=== PATIENT | male | born 1985 | race Caucasian/White ===

== ENCOUNTER 2020-08-02 09:40 | Outpatient (REF) | payer MEDICARE, MEDICAID, SELFPAY ==
[2020-08-02 11:11] LABS: MANUAL DIFF FLAG NO
[2020-08-02 11:30] LABS: Basophils Percent Auto 0.2 % (0-2); Eosinophils Absolute Auto 0.1 X10*3/uL (0.0-0.4); Eosinophils Percent Auto 1.8 % (0-4); Hematocrit 45.2 % (42-52); Hemoglobin 14.4 g/dl (14.0-18.0); Imm Gran Abs Auto 0.02 X10*3/uL (0.00-0.03); Imm Gran Pct Auto 0.4 % (0.0-0.4); Lymphocytes Absolute Auto 1.1 X10*3/uL (1.2-4.9); Lymphocytes Percent Auto 25.2 % (20-40); Mean Corpuscular HGB Conc 31.9 g/dl (31.0-36.0); Mean Corpuscular Volume 84.8 fL (80-98); Mean Platelet Volume 10.9 fL (9.4-12.4); Monocytes Absolute Auto 0.4 X10*3/uL (0.1-1.2); Monocytes Percent Auto 8.3 % (2-11); Neutrophils Absolute Auto 2.9 X10*3/uL (2.0-8.3); Neutrophils Percent Auto 64.1 % (45-73); Platelet Count 184 X10*3/uL (160-400); Red Blood Count 5.33 X10*6/uL (4.60-5.80); Red Cell Distribution Width 12.3 % (11.0-16.0); White Blood Count 4.5 X10*3/uL (4.8-10.8)
[2020-08-02 12:04] LABS: Vitamin D 25-OH Total 32.1 ng/mL (>30)
[2020-08-02 12:15] LABS: Alanine Aminotransferase 20 U/L (0-40); Albumin Level 4.5 g/dL (3.5-5.0); Alkaline Phosphatase 56 U/L (39-117); Anion Gap 12 (12-20); Aspartate Amino Transferase 19 U/L (5-37); Bilirubin Total 0.4 mg/dL (0.0-1.0); Blood Urea Nitrogen 14 mg/dL (9-16); Calcium 9.2 mg/dL (8.4-10.2); Carbon Dioxide 27 mmol/L (22-29); Chloride 105 mmol/L (96-108); Cholesterol 193 mg/dL; Estimated Glomerular Filt Rate > 60; Glucose Fasting 87 mg/dL (60-99); HDL Cholesterol 44 mg/dL; LDL Cholesterol Calculated 133 mg/dl; Potassium 4.6 mmol/l (3.3-5.1); Sodium 139 mmol/L (135-145); Total Protein 7.7 g/dL (6.5-8.0); Triglycerides 81 mg/dL
[2020-08-02 12:23] LABS: Carbamazepine Tegretol 9.3 mcg/mL (5.0-12.0)
== END 2020-08-02 09:41 | disposition home or self-care (01) ==
LOC: HO.HMGCLDS 09:40
PROVIDERS: PCP Internal Medicine; Visit Provider Internal Medicine
DX: E66.9 Obesity, unspecified (principal); E55.9 Vitamin D deficiency, unspecified; E78.00 Pure hypercholesterolemia, unspecified; G40.909 Epilepsy, unspecified, not intractable, without status epilepticus; F84.0 Autistic disorder
CPT/HCPCS: 36415; 80053; 80061; 80156; 82306; 85025

== ENCOUNTER 2020-08-25 08:30 | Outpatient (REF) | payer MEDICARE, MEDICAID, SELFPAY ==
[2020-08-25 09:00] LABS: MANUAL DIFF FLAG NO
[2020-08-25 09:04] LABS: Basophils Percent Auto 0.4 % (0-2); Eosinophils Absolute Auto 0.1 X10*3/uL (0.0-0.4); Hematocrit 43.4 % (42-52); Imm Gran Abs Auto 0.02 X10*3/uL (0.00-0.03); Imm Gran Pct Auto 0.4 % (0.0-0.4); Lymphocytes Absolute Auto 1.3 X10*3/uL (1.2-4.9); Lymphocytes Percent Auto 25.6 % (20-40); Mean Corpuscular HGB Conc 32.3 g/dl (31.0-36.0); Mean Corpuscular Hemoglobin 27.3 pg (27.0-33.0); Mean Corpuscular Volume 84.8 fL (80-98); Mean Platelet Volume 10.5 fL (9.4-12.4); Monocytes Absolute Auto 0.4 X10*3/uL (0.1-1.2); Monocytes Percent Auto 8.1 % (2-11); Neutrophils Absolute Auto 3.2 X10*3/uL (2.0-8.3); Neutrophils Percent Auto 63.5 % (45-73); Platelet Count 166 X10*3/uL (160-400); Red Blood Count 5.12 X10*6/uL (4.60-5.80); Red Cell Distribution Width 12.3 % (11.0-16.0)
[2020-08-25 09:31] LABS: Alanine Aminotransferase 20 U/L (0-40); Albumin Level 4.3 g/dL (3.5-5.0); Alkaline Phosphatase 52 U/L (39-117); Anion Gap 11 (12-20); Aspartate Amino Transferase 20 U/L (5-37); Bilirubin Total 0.2 mg/dL (0.0-1.0); Blood Urea Nitrogen 10 mg/dL (9-16); Calcium 8.9 mg/dL (8.4-10.2); Carbon Dioxide 27 mmol/L (22-29); Chloride 105 mmol/L (96-108); Cholesterol 184 mg/dL; Estimated Glomerular Filt Rate > 60; Glucose Fasting 98 mg/dL (60-99); HDL Cholesterol 42 mg/dL; LDL Cholesterol Calculated 119 mg/dl; Potassium 4.9 mmol/l (3.3-5.1); Sodium 138 mmol/L (135-145); Total Protein 7.3 g/dL (6.5-8.0); Triglycerides 115 mg/dL
[2020-08-25 09:54] LABS: Vitamin D 25-OH Total 28.8 ng/mL (>30)
[2020-08-25 10:22] LABS: Carbamazepine Tegretol 10.4 mcg/mL (5.0-12.0)
[2020-09-01 15:07] LABS: Gabapentin 7.5 mcg/mL
[2020-09-02 10:52] LABS: Levetiracetam Keppra 36.1 mcg/mL (12.0-46.0)
== END 2020-08-25 08:31 | disposition home or self-care (01) ==
LOC: HO.LAB 08:30
PROVIDERS: PCP Internal Medicine; Visit Provider Internal Medicine
DX: G40.909 Epilepsy, unspecified, not intractable, without status epilepticus (principal); E78.5 Hyperlipidemia, unspecified; F84.0 Autistic disorder; E55.9 Vitamin D deficiency, unspecified
CPT/HCPCS: 36415; 80053; 80061; 80156; 80171; 80177; 82306; 85025

== ENCOUNTER 2021-01-22 07:47 | Outpatient (REF) | payer MEDICARE, MEDICAID, SELFPAY ==
[2021-01-22 08:18] LABS: MANUAL DIFF FLAG NO
[2021-01-22 08:24] LABS: Basophils Percent Auto 0.3 % (0-2); Eosinophils Absolute Auto 0.1 X10*3/uL (0.0-0.4); Eosinophils Percent Auto 1.6 % (0-4); Hematocrit 42.8 % (42-52); Hemoglobin 13.9 g/dl (14.0-18.0); Imm Gran Abs Auto 0.02 X10*3/uL (0.00-0.03); Imm Gran Pct Auto 0.5 % (0.0-0.4); Lymphocytes Percent Auto 28.2 % (20-40); Mean Corpuscular HGB Conc 32.5 g/dl (31.0-36.0); Mean Corpuscular Hemoglobin 27.4 pg (27.0-33.0); Mean Corpuscular Volume 84.3 fL (80-98); Mean Platelet Volume 10.5 fL (9.4-12.4); Monocytes Absolute Auto 0.3 X10*3/uL (0.1-1.2); Monocytes Percent Auto 8.7 % (2-11); Neutrophils Absolute Auto 2.2 X10*3/uL (2.0-8.3); Neutrophils Percent Auto 60.7 % (45-73); Platelet Count 167 X10*3/uL (160-400); Red Blood Count 5.08 X10*6/uL (4.60-5.80); White Blood Count 3.7 X10*3/uL (4.8-10.8)
[2021-01-22 08:45] LABS: Alanine Aminotransferase 8 U/L (0-40); Albumin Level 4.3 g/dL (3.5-5.0); Alkaline Phosphatase 58 U/L (39-117); Anion Gap 12 (12-20); Aspartate Amino Transferase 17 U/L (5-37); Bilirubin Total 0.5 mg/dL (0.0-1.0); Blood Urea Nitrogen 11 mg/dL (9-16); Calcium 9.2 mg/dL (8.4-10.2); Carbon Dioxide 25 mmol/L (22-29); Chloride 106 mmol/L (96-108); Cholesterol 177 mg/dL; Estimated Glomerular Filt Rate > 60; Glucose Fasting 87 mg/dL (60-99); HDL Cholesterol 38 mg/dL; LDL Cholesterol Calculated 114 mg/dl; Potassium 4.6 mmol/L (3.3-5.1); Sodium 138 mmol/L (135-145); Total Protein 7.1 g/dL (6.5-8.0); Triglycerides 126 mg/dL
[2021-01-22 08:54] LABS: Estimated Average Glucose 103 mg/dL; Hemoglobin A1c % 5.2 %
[2021-01-22 09:07] LABS: Vitamin D 25-OH Total 29.7 ng/mL (>30)
[2021-01-22 10:55] LABS: Carbamazepine Tegretol 9.6 mcg/mL (5.0-12.0)
[2021-01-23 07:22] LABS: Prolactin 22.4 ng/mL (2.0-18.0)
[2021-01-26 09:57] LABS: Levetiracetam Keppra 13.5 mcg/mL (12.0-46.0)
== END 2021-01-22 07:48 | disposition home or self-care (01) ==
LOC: HO.LAB 07:47
PROVIDERS: Absent Provider Psychiatry & Neurology Child & Adolescent Psychiatry; PCP Internal Medicine; Visit Provider Internal Medicine
DX: F84.0 Autistic disorder (principal); G40.909 Epilepsy, unspecified, not intractable, without status epilepticus; E78.00 Pure hypercholesterolemia, unspecified; E55.9 Vitamin D deficiency, unspecified; Z79.899 Other long term (current) drug therapy
CPT/HCPCS: 36415; 80053; 80061; 80156; 80177; 82306; 83036; 84146; 85025

== ENCOUNTER → 2021-02-14 07:01 | Outpatient (REF) | payer MEDICARE, MEDICAID, SELFPAY ==
--- NOTE | 2021-02-14 07:13 | ECG_ITS ---
Test Reason : F84.0 Blood Pressure : / mmHG Vent. Rate : 080 BPM Atrial Rate : 080 BPM P-R Int : 168 ms QRS Dur : 102 ms QT Int : 382 ms P-R-T Axes : 032 020 054 degrees QTc Int : 440 ms Normal sinus rhythm Normal ECG No previous ECGs available Referred By: [place] Electronically Signed By:Ronn Coulter
== END ==
LOC: HO.CARD 07:01
PROVIDERS: PCP Internal Medicine; Visit Provider Psychiatry & Neurology Child & Adolescent Psychiatry
DX: Z79.899 Other long term (current) drug therapy (principal)
CPT/HCPCS: 93005

== ENCOUNTER → 2022-12-12 08:03 | Outpatient (REF) | payer MEDICARE, MEDICAID, SELFPAY ==
--- NOTE | 2022-12-12 08:11 | ECG_ITS ---
Test Reason : rhythm pre-op Blood Pressure : / mmHG Vent. Rate : 095 BPM Atrial Rate : 095 BPM P-R Int : 162 ms QRS Dur : 094 ms QT Int : 370 ms P-R-T Axes : 045 058 054 degrees QTc Int : 464 ms Normal sinus rhythm Normal ECG When compared with ECG of 14-FEB-2021 07:18, No significant change was found Referred By: Laure Ayala Electronically Signed By:JUAN CROWE
[2022-12-12 08:20] LABS: MANUAL DIFF FLAG NO
[2022-12-12 08:39] LABS: Basophils Percent Auto 0.2 % (0-2); Eosinophils Absolute Auto 0.1 X10*3/uL (0.0-0.4); Hematocrit 43.4 % (42.0-52.0); Hemoglobin 14.4 g/dl (14.0-18.0); Imm Gran Abs Auto 0.03 X10*3/uL (0.00-0.03); Imm Gran Pct Auto 0.7 % (0.0-0.4); Lymphocytes Absolute Auto 1.1 X10*3/uL (1.2-4.9); Lymphocytes Percent Auto 23.5 % (20-40); Mean Corpuscular HGB Conc 33.2 g/dl (31.0-36.0); Mean Corpuscular Hemoglobin 26.9 pg (27.0-33.0); Mean Corpuscular Volume 81.1 fL (80.0-98.0); Mean Platelet Volume 9.9 fL (9.4-12.4); Monocytes Absolute Auto 0.5 X10*3/uL (0.1-1.2); Neutrophils Absolute Auto 2.9 x10*3/uL (2.0-8.3); Neutrophils Percent Auto 63.6 % (45-73); Platelet Count 192 X10*3/uL (160-400); Red Blood Count 5.35 X10*6/uL (4.60-5.80); Red Cell Distribution Width 12.3 % (11.0-16.0); White Blood Count 4.6 X10*3/uL (4.8-10.8)
[2022-12-12 08:49] LABS: Prothrombin Time 11.9 SEC (10.0-13.1)
[2022-12-12 13:03] LABS: TSH reflex Free T4 2.04 uIU/mL (0.32-4.0)
[2022-12-12 13:07] LABS: Anion Gap 10 (12-20)
[2022-12-12 13:12] LABS: Alanine Aminotransferase 15 U/L (0-40); Albumin Level 4.2 g/dL (3.5-5.0); Alkaline Phosphatase 63 U/L (39-117); Aspartate Amino Transferase 18 U/L (5-37); Bilirubin Total 0.4 mg/dL (0.0-1.0); Blood Urea Nitrogen 9 mg/dL (9-16); Calcium 9.2 mg/dL (8.4-10.2); Carbon Dioxide 25 mmol/L (22-29); Chloride 104 mmol/L (96-108); Estimated Glomerular Filt Rate > 60; Glucose Random 109 mg/dL (60-115); Potassium 4.4 mmol/L (3.3-5.1); Sodium 135 mmol/L (135-145); Total Protein 7.1 g/dL (6.5-8.0)
== END ==
LOC: HO.CARD 08:03
PROVIDERS: PCP Internal Medicine; Visit Provider Nurse Practitioner Family
DX: Z01.818 Encounter for other preprocedural examination (principal)
CPT/HCPCS: 36415; 80053; 84443; 85025; 85610; 93005

== ENCOUNTER 2023-04-10 09:23 | Outpatient (AMB) | payer MEDICARE, MEDICAID, SELFPAY ==
[2023-04-10 09:26] VITALS: BP 118/78; PULSE 91; O2SAT 98; BMI 30.9
--- NOTE | 2023-04-10 09:26 | MHC.PC.OV ---
Vital Signs 04/10/23 09:26 Height 6 ft 4 in Weight 254 lb BMI 30.9 BP 118/78 Blood Pressure Location Lt brachial Position Sitting Pulse 91 Pulse Source Pulse Oximeter Pulse Oximetry (%) 98 Oxygen Delivery Method Room Air Intake Visit Reasons: 6m F/U autism, epilepsy, hyperlipidemia [employer] Load[employer] Operator Required: No Accompanied by: Self / Same As Patient Allergies No Known Allergies [No Known Allergies*] Allergy (Verified 04/10/23 09:43) Medication List - Last Reconciled 04/10/23 by Low Isaac MD acetaminophen 650 mg (2 x 325 mg) PO Q4-6H PRN 30 days ammonium lactate 12% 1 appl topical BID PRN 30 days atorvastatin 20 mg PO DAILY benztropine 1 mg PO BID carbamazepine ER 500 mg (5 x 100 mg) PO BID 30 days cholecalciferol (vitamin D3) (Vitamin D3) 50 mcg PO DAILY clonidine HCl 0.1 mg PO BID 90 days clonidine HCl 0.2 mg PO BEDTIME 90 days gabapentin 600 mg PO BID 30 days gabapentin 400 mg PO TID levetiracetam 1,000 mg PO BID lorazepam 1 mg PO BID onabotulinumtoxinA units IM Q3D risperidone 3 mg PO BID tizanidine 4 mg PO Q8H PRN 30 days trazodone 150 mg PO BEDTIME trazodone 100 mg PO BEDTIME Tobacco use date assessed: 04/10/23 Dental Screening Dental Screen Date: 04/10/23 Did you have a dental visit in the last 12 months?: Yes Did you have a dental problem in the last 6 months where you did not have access to dental care?: No Was dental information given to patient?: Patient has dentist HPI 6m F/U autism, epilepsy, hyperlipidemia HPI Details Patient comes in today for his follow up visit - is accompanied as usual by his mother, who is his HCP His mother states that patient has been doing well lately States that neurology recently added an extra 400 mg dose of Gabapentin at noon to his previous Rx regimen and he now takes Gabapentin 1000 mg in AM, 400 mg at noon and 1000 mg in the evening in addition to all of his previous Rx States that his Keppra is now back at 1500 mg BID and he has a follow up appt with neurology again next month Patient is reportedly doing well and has not had any seizures lately Is also doing better at his day program since his Rx dose adjustment Patient denies any headaches or dizziness lately Denies any chest pains, no SOB No nausea/vomiting, no abdominal pain No change in bowel habits noted His mother adds that he's had several red skin lesions on the left side of his neck for a while now and she would like for him to be seen by dermatology to see if they can help clear or remove these lesions He's had some follow up labs done at [facility] a couple of months ago and his mother would like to know if his labs came out okay [facility] Medical History Autism Cervical dystonia Epilepsy Obesity (BMI 30-39.9) Obsessive compulsive disorder Pure hypercholesterolemia Vitamin D deficiency Surgical History History of elbow surgery History of excision of mass Family History Mother Medical history unknown Social History Housing: Apartment Alcohol intake: never Patient Tobacco Use Status: Never used Tobacco e-Cigarette/Vaping Use: Never Used Second Hand Smoke Exposure: No service: No Current occupational status: disabled Cognitive needs: Yes Hearing needs: No Vision needs: No Questionnaire PHQ-9 Over the last 2 weeks, how often have you been bothered by any of the following problems? 1. Little interest or pleasure in doing things: not at all 2. Feeling down, depressed, or hopeless: not at all 3. Trouble falling or staying asleep, or sleeping too much: not at all 4. Feeling tired or having little energy: not at all 5. Poor appetite or overeating: not at all 6. Feeling bad about yourself - or that you are a failure or have let yourself or your family down: not at all 7. Trouble concentrating on things, such as reading the newspaper or watching television: not at all 8. Moving or speaking so slowly that other people could have noticed. Or the opposite - being so fidgety or restless that you have been moving around a lot more than usual: not at all 9. Thoughts that you would be better off or of hurting yourself in some way: not at all Total score: 0 Depression Screening Interpretation: Negative [id number] - PHQ-9 Billing: Yes Source: Developed by Drs. William Romero, Gi Jarrell, Praneeth Baez and colleagues, with an educational donta from [facility]. Thrive Questionnaire Date Thrive assessed: 04/10/23 I am a: Parent/Caregiver What is your living situation today?: I have a steady place to live Within the past 12 months, did the food you bought not last and you didn't have the money to get more?: Never true Within the past 12 months, did you worry whether your food would run out before you got money to buy more?: Never true Do you have trouble paying for medicines?: No Do you have trouble getting transportation to medical appointments?: No Do you have trouble paying your heating and electricity bill?: No Do you have trouble taking care of your child, family member or friend?: No Do you have trouble with day-to-day activities such as bathing, preparing meals, shopping, managing finances, etc.?: No Are you currently unemployed and looking for a job?: No Are you interested in more education?: No Please select the resources that you would like help with: None Currently or been in a relationship where the following occur: no concerns reported AUDIT C Alcohol Use Questionnaire (AUDIT-C) 1. How often do you have a drink containing alcohol?: Never 3. How often do you have six or more drinks on one occasion?: Never Total Score: 0 Score Reviewed/Action Taken: Yes DNAII-7 AMB Questionnaire DANII-7 Date DANII - 7 assessed: 04/10/23 Feeling nervous, anxious, or on edge: 0 = Not at all Not being able to stop or control worryin = Not at all Worrying too much about different things: 0 = Not at all Trouble relaxin = Not at all Being so restless that it is hard to sit still: 0 = Not at all Becoming easily annoyed or irritable: 0 = Not at all Feeling afraid as if something awful might happen: 0 = Not at all Total DANII-7 score (0-4 normal; 5-9 mild; 10-14 moderate; 15-21 severe): 0 Source: Developed by Drs. William Romero, Gi Jarrell, Praneeth Baez and colleagues, with an educational donta from [facility]. Review of Systems Const Details: Information/ROS is obtained mostly through patient's mother as patient is unable to provide info due to his mental and intellectual disabilities Denies chills, Denies fatigue, Denies fever(s) and Denies headache(s) ENT Denies dysphagia, Denies dizziness, Denies otalgia, Denies headache(s), Denies neck pain, Denies odynophagia and Denies sore throat Card Denies chest pain, Denies palpitations and Denies dyspnea Resp Denies chest congestion, Denies cough, Denies dyspnea and Denies wheezing GI Denies abdominal pain, Denies constipation, Denies dysphagia, Denies heartburn, Denies diarrhea, Denies nausea, Denies odynophagia and Denies vomiting Details: wets bed accidentally at night at times Denies hematuria, Denies dysuria and Denies urinary frequency Musc Denies back pain, Denies arthralgias and Denies neck pain Skin/Breast Details: (+) several raised skin lesions on the left side of the neck - lesions are not painful or itchy Denies rash and Denies unusual bruising Neuro Denies dizziness and Denies headache(s) Endo Denies fatigue and Denies palpitations Aller/Immun Denies wheezing Physical exam (Primary Care) Vital Signs: Last Vital Signs Pulse 91 04/10/23 09:26 BP 118/78 04/10/23 09:26 Pulse Ox 98 04/10/23 09:26 Oxygen Delivery Method Room Air 04/10/23 09:26 BMI result Body Mass Index 30.9 Tobacco/Smoking Status: Tobacco use Status Tobacco use date assessed 04/10/23 04/10/23 09:32 Patient Tobacco Use Status Never used Tobacco 04/10/23 09:32 e-Cigarette/Vaping Use Never Used 04/10/23 09:32 PHQ-9: PHQ-9 Score PHQ-9: Total score 0 04/10/23 09:32 Depression Screening Interpretation: Negative Thrive Assessment: Date of Thrive Assessment Date Thrive assessed 04/10/23 04/10/23 09:32 Currently or been in a relationship where the following occur: no concerns reported Const General: no acute distress and alert Orientation/consciousness: Other orientation findings (unable to assess orientation due to mental disability) HENMT Ears: TM's normal bilaterally and EAC's normal Throat: Yes posterior oropharynx normal and Yes tonsils normal (no TP congestion) Neck Neck: Yes no lymphadenopathy and Yes supple Thyroid: Thyroid normal Resp Auscultation: clear to auscultation bilaterally, no rales and no wheezes Cardio Rate: regular rate Rhythm: regular rhythm Heart sounds: no murmurs GI Palpation (GI): Soft to palpation and nontender Auscultation: normal bowel sounds General: Yes no CVA tenderness Back/Spine/Pelvis Back: no CVA tenderness Thoracic/Lumbar Spine: thoracic and lumbar spine normal to inspection Skin Other: (+) multiple raised, red (erythematous) lesions on the left side of the neck Neuro Other: neuro exam limited due to patient's inability to fully comply with exam General: moves all extremities and no focal motor deficits Gait exam (Neuro): Normal gait present Extrem General: Yes no clubbing, cyanosis or edema Results Reviewed Results Reviewed: Laboratory Tests 12/12/22 12/12/22 08:18 08:18 WBC 4.6 L Hgb 14.4 Hct 43.4 Plt Count 192 Sodium 135 Potassium 4.4 Creatinine 0.92 Estimated GFR > 60 Random Glucose 109 Calcium 9.2 AST 18 ALT 15 TSH 2.04 Assessment and Plan Assessment & Plan (1) Pure hypercholesterolemia: Code(s): E78.00 - Pure hypercholesterolemia, unspecified Plan: Results of his labs done at [facility] back in January 2023 reviewed and discussed with patient's mother Reinforced low cholesterol diet Continue Atorvastatin 20 mg QD Will have him recheck his labs and fasting lipids in 6 months for follow up (2) Epilepsy: Code(s): G40.909 - Epilepsy, unspecified, not intractable, without status epilepticus Qualifiers: Epilepsy type: unspecified Intractability: not intractable Status epilepticus: without status epilepticus Qualified Code(s): G40.909 - Epilepsy, unspecified, not intractable, without status epilepticus Plan: Stable Continue Levetiracetam 1500 mg BID and Carbamazepine ER 500 mg BID (100 mg caps at 5 caps BID) Follow up with neurology as scheduled - is now going to [facility] Neurology since Dr. Fierro retired (3) Cervical dystonia: Code(s): G24.3 - Spasmodic torticollis Plan: Follow up with neurology as scheduled - gets Botox injections into both sides of the neck regularly now from Dr. Giordano Was tried on Nurtec ODT, which patient's mother states did not help much Has been started on Sinemet 25-100 mg to take PRN but no more than 2 tablets in 24 hours - instructions are similar to how triptans are taken (4) Vitamin D deficiency: Code(s): E55.9 - Vitamin D deficiency, unspecified Plan: Continue Vitamin D3 2000 units QD (5) Skin lesions: Code(s): L98.9 - Disorder of the skin and subcutaneous tissue, unspecified Plan: Per patient's mother's request, will refer him to dermatology for further evaluation and management (excision if appropriate) of the multiple red and raised lesions on the left side of his neck (6) Autism: Code(s): F84.0 - Autistic disorder Plan: Continue Clonidine 0.1 mg twice a day in AM and at 4 pm and Clonidine 0.2 mg daily at bedtime Continue Hydroxyzine 50 mg Q 8 hours as needed Follow up with psychiatry as scheduled (7) Obsessive compulsive disorder: Code(s): F42.9 - Obsessive-compulsive disorder, unspecified Qualifiers: Obsessive-compulsive disorder type: unspecified Qualified Code(s): F42.9 - Obsessive-compulsive disorder, unspecified Plan: Continue Benztropine Mesylate 1 mg BID, Risperdal 3 mg 1 tablet BID at 8 am and 4 pm, Gabapentin 600 mg + 400 mg (total of 1000 mg) BID and Trazodone 150 mg + 100 mg (total of 250 mg) Q HS States that Gabapentin 400 mg QD at noon was added recently by neurology Follow up with psychiatry and neurology as scheduled (8) Obesity (BMI 30-39.9): Code(s): E66.9 - Obesity, unspecified Plan: Reinforced diet/exercise as tolerated/lose weight Plan To return in 6 months for his next annual physical examination Orders: Orders Complete Blood Count Auto Diff 6 Months G40.909 - Epilepsy, unspecified, not intractable, without status epilepticus, Z00.00 - Encounter for general adult medical examination without abnormal findings Comprehensive [place]. Panel Fast 6 Months G40.909 - Epilepsy, unspecified, not intractable, without status epilepticus, Z00.00 - Encounter for general adult medical examination without abnormal findings Lipid Panel 6 Months E78.00 - Pure hypercholesterolemia, unspecified, G40.909 - Epilepsy, unspecified, not intractable, without status epilepticus, Z00.00 - Encounter for general adult medical examination without abnormal findings TSH reflex Free T4 6 Months E66.9 - Obesity, unspecified, G40.909 - Epilepsy, unspecified, not intractable, without status epilepticus, Z00.00 - Encounter for general adult medical examination without abnormal findings UA CC w/rflx Micro + Cult 6 Months R30.0 - Dysuria, Z00.00 - Encounter for general adult medical examination without abnormal findings Vitamin D 25-OH Total 6 Months E55.9 - Vitamin D deficiency, unspecified, Z00.00 - Encounter for general adult medical examination without abnormal findings Levetiracetam Keppra 6 Months G40.909 - Epilepsy, unspecified, not intractable, without status epilepticus, Z00.00 - Encounter for general adult medical examination without abnormal findings Carbamazepine Tegretol 6 Months G40.909 - Epilepsy, unspecified, not intractable, without status epilepticus Referrals Dermatology Referral L98.9 - Disorder of the skin and subcutaneous tissue, unspecified Coding Level of Care Code Est Pt Level 4 (99947) Diagnoses Pure hypercholesterolemia E78.00 Epilepsy G40.909 Epilepsy type: unspecified Intractability: not intractable Status epilepticus: without status epilepticus Cervical dystonia G24.3 Vitamin D deficiency E55.9 Skin lesions L98.9 Autism F84.0 Obsessive compulsive disorder F42.9 Obsessive-compulsive disorder type: unspecified Obesity (BMI 30-39.9) E66.9
== END 2023-04-10 10:13 | disposition home or self-care (01) ==
PROVIDERS: PCP Internal Medicine; Visit Provider Internal Medicine
DX: E78.00 Pure hypercholesterolemia, unspecified (principal); G40.909 Epilepsy, unspecified, not intractable, without status epilepticus; E55.9 Vitamin D deficiency, unspecified; F84.0 Autistic disorder; G24.3 Spasmodic torticollis; L98.9 Disorder of the skin and subcutaneous tissue, unspecified; F42.9 Obsessive-compulsive disorder, unspecified; E66.9 Obesity, unspecified
CPT/HCPCS: 99214

== ENCOUNTER 2023-10-11 08:59 | Outpatient (AMB) | payer MEDICARE, MEDICAID, SELFPAY ==
[2023-10-11 09:00] VITALS: BP 112/68; PULSE 78; O2SAT 98; BMI 31.9
--- NOTE | 2023-10-11 09:00 | MHC.PC.OV ---
Vital Signs 10/11/23 09:00 Height 6 ft 4 in Weight 262 lb BMI 31.9 BP 112/68 Blood Pressure Location Lt brachial Position Sitting Pulse 78 Pulse Source Pulse Oximeter Pulse Oximetry (%) 98 Oxygen Delivery Method Room Air Intake Visit Reasons: pe Intake Note: Patient here for a physica exam Tow Picker Required: No Accompanied by: Mother Allergies No Known Allergies [No Known Allergies*] Allergy (Verified 10/11/23 09:25) Medication List - Last Reconciled 10/11/23 by Low Isaac MD acetaminophen 650 mg (2 x 325 mg) PO Q4-6H PRN 30 days ammonium lactate 12% 1 appl topical BID PRN 30 days atorvastatin 20 mg PO DAILY benztropine 1 mg PO BID carbamazepine ER 500 mg (5 x 100 mg) PO BID 30 days cholecalciferol (vitamin D3) (Vitamin D3) 50 mcg PO DAILY clonidine HCl 0.2 mg PO BEDTIME 90 days clonidine HCl 0.1 mg PO BID 90 days gabapentin 600 mg PO BID 30 days gabapentin 400 mg PO TID levetiracetam 1,000 mg PO BID lorazepam 1 mg PO BID onabotulinumtoxinA units IM [id number] risperidone 3 mg PO QAM risperidone 2 mg PO QPM risperidone 0.5 mg PO QPM tizanidine 4 mg PO Q8H PRN 30 days trazodone 150 mg PO BEDTIME trazodone 100 mg PO BEDTIME Tobacco use date assessed: 10/11/23 Dental Screening Dental Screen Date: 10/11/23 Did you have a dental visit in the last 12 months?: Yes Did you have a dental problem in the last 6 months where you did not have access to dental care?: No Was dental information given to patient?: Patient has dentist HPI pe HPI Details Patient comes in today for his annual physical examination - is accompanied as usual by his mother, who is his primary caregiver, guardian and HCP Information is obtained mostly from his mother as patient is not able to participate in meaningful conversations due to his psychiatric issues Patient is reportedly doing well and currently has no acute issues aside from his seizures He had seizures most recently on Sunday of last week - his seizures were mostly mild, per his mother, who states that patient still has seizure episodes about once a month He is receiving Botox injections into both sides of the neck for cervical dystonia with anterocollis from neurology every 3 months - his mother states that the Botox injections have been helping a lot Patient presently has had no fever, sore throat, headaches or dizziness He has no chest pains or SOB No nausea/vomiting, no abdominal pain No change in bowel habits noted Patient still occasionally wets his bed (accidentally); his mother states that he is otherwise able to use the bathroom on his own but needs help cleaning up after bowel movements and they would like to see if he can be prescribed some adult briefs for nighttime use He also continues to go to and participate in his day program regularly He needs his Lac Hydrin lotion Rx refilled He had his follow up labs done at [facility] last weekend - to discuss his results [facility] Medical History Cervical dystonia Obesity (BMI 30-39.9) Obsessive compulsive disorder Autism Vitamin D deficiency Pure hypercholesterolemia Epilepsy Surgical History History of elbow surgery History of excision of mass Family History Mother Medical history unknown Social History Housing: Apartment Alcohol intake: never Patient Tobacco Use Status: Never used Tobacco e-Cigarette/Vaping Use: Never Used Second Hand Smoke Exposure: No service: No Current occupational status: disabled Cognitive needs: Yes Hearing needs: No Vision needs: No Questionnaire PHQ-9 Over the last 2 weeks, how often have you been bothered by any of the following problems? 1. Little interest or pleasure in doing things: not at all 2. Feeling down, depressed, or hopeless: not at all 3. Trouble falling or staying asleep, or sleeping too much: not at all 4. Feeling tired or having little energy: not at all 5. Poor appetite or overeating: not at all 6. Feeling bad about yourself - or that you are a failure or have let yourself or your family down: not at all 7. Trouble concentrating on things, such as reading the newspaper or watching television: not at all 8. Moving or speaking so slowly that other people could have noticed. Or the opposite - being so fidgety or restless that you have been moving around a lot more than usual: not at all 9. Thoughts that you would be better off or of hurting yourself in some way: not at all Total score: 0 Depression Screening Interpretation: Negative Depression Screening Done: Yes 75520 - PHQ-9 Billing: Yes Source: Developed by Drs. William Romero, Gi Jarrell, Praneeth Baez and colleagues, with an educational donta from [employer]. Thrive Questionnaire Date Thrive assessed: 10/11/23 I am a: Parent/Caregiver What is your living situation today?: I have a steady place to live Within the past 12 months, did the food you bought not last and you didn't have the money to get more?: Never true Within the past 12 months, did you worry whether your food would run out before you got money to buy more?: Never true Do you have trouble paying for medicines?: No Do you have trouble getting transportation to medical appointments?: No Do you have trouble paying your heating and electricity bill?: No Do you have trouble taking care of your child, family member or friend?: No Do you have trouble with day-to-day activities such as bathing, preparing meals, shopping, managing finances, etc.?: No Are you currently unemployed and looking for a job?: No Are you interested in more education?: No Please select the resources that you would like help with: None Currently or been in a relationship where the following occur: no concerns reported THRIVE Score: 0 AUDIT C Alcohol Use Questionnaire (AUDIT-C) 1. How often do you have a drink containing alcohol?: Never Total Score: 0 Score Reviewed/Action Taken: Yes DANII-7 AMB Questionnaire DANII-7 Date DANII - 7 assessed: 10/11/23 Feeling nervous, anxious, or on edge: 1 = Several days Not being able to stop or control worryin = Not at all Worrying too much about different things: 0 = Not at all Trouble relaxin = Not at all Being so restless that it is hard to sit still: 0 = Not at all Becoming easily annoyed or irritable: 0 = Not at all Feeling afraid as if something awful might happen: 0 = Not at all Total DANII-7 score (0-4 normal; 5-9 mild; 10-14 moderate; 15-21 severe): 1 Source: Developed by Drs. William Romero, iG Jarrell, Praneeth Baez and colleagues, with an educational donta from [employer]. Review of Systems Const Details: Information/ROS is obtained mostly through patient's mother as patient is unable to provide info due to his mental and intellectual disabilities Denies chills, Denies fatigue, Denies fever(s) and Denies headache(s) Eyes Denies eye discharge and Denies eye pain ENT Denies dysphagia, Denies dizziness, Denies otalgia, Denies headache(s), Denies neck pain, Denies odynophagia and Denies sore throat Card Denies chest pain, Denies palpitations and Denies dyspnea Resp Denies chest congestion, Denies cough, Denies dyspnea and Denies wheezing GI Denies abdominal pain, Denies constipation, Denies dysphagia, Denies heartburn, Denies diarrhea, Denies nausea, Denies odynophagia and Denies vomiting Details: wets bed accidentally at night at times Denies hematuria, Denies dysuria, Denies urinary frequency and Reports urinary incontinence (at times, mostly at night) Musc Denies back pain, Denies arthralgias and Denies neck pain Skin/Breast Denies lesions, Denies rash and Denies unusual bruising Neuro Denies dizziness, Denies headache(s) and Reports convulsions (on and off, mostly mild (per patient's mother)) Endo Denies fatigue and Denies palpitations Aller/Immun Denies wheezing Physical exam (Primary Care) Vital Signs: Last Vital Signs Pulse 78 10/11/23 09:00 BP 112/68 10/11/23 09:00 Pulse Ox 98 10/11/23 09:00 Oxygen Delivery Method Room Air 10/11/23 09:00 BMI result Body Mass Index 31.9 Tobacco/Smoking Status: Tobacco use Status Tobacco use date assessed 10/11/23 10/11/23 09:02 Patient Tobacco Use Status Never used Tobacco 10/11/23 09:02 e-Cigarette/Vaping Use Never Used 10/11/23 09:02 PHQ-9: PHQ-9 Score PHQ-9: Total score 0 10/11/23 09:36 Depression Screening Interpretation: Negative Thrive Assessment: Date of Thrive Assessment Date Thrive assessed 10/11/23 10/11/23 09:02 Currently or been in a relationship where the following occur: no concerns reported Const General: no acute distress and alert Orientation/consciousness: Other orientation findings (unable to assess orientation due to mental disability) Limitations: behavioral limitations (is autistic) [facility] Head: Yes normocephalic and Yes atraumatic Ears: external ears normal, TM's normal bilaterally and EAC's normal General nose exam: No nasal discharge present Face and sinus: Yes normal facial exam Mouth: Normal oral and palatal mucosa present and tongue normal Teeth and gingiva: dentition normal Throat: Yes posterior oropharynx normal and Yes tonsils normal (no TP congestion) Eyes Eyelids: Yes eyelids normal Conjunctivae: conjunctivae normal Neck Neck: Yes no lymphadenopathy and Yes supple Thyroid: Thyroid normal Resp Auscultation: clear to auscultation bilaterally, no rales and no wheezes Cardio Rate: regular rate Rhythm: regular rhythm Heart sounds: no murmurs GI Palpation (GI): Soft to palpation, nontender and No hepatosplenomegaly present Auscultation: normal bowel sounds General: Yes no CVA tenderness Back/Spine/Pelvis Back: no CVA tenderness Thoracic/Lumbar Spine: thoracic and lumbar spine normal to inspection Skin Lesions: no lesions Rashes: no rashes Neuro Other: neuro exam limited due to patient's disabilities and his inability to fully comply with exam General: moves all extremities and no focal motor deficits Gait exam (Neuro): Normal gait present Extrem General: Yes no clubbing, cyanosis or edema Assessment and Plan Assessment & Plan (1) Annual physical exam: Code(s): Z00.00 - Encounter for general adult medical examination without abnormal findings Plan: Results of his labs done at [facility] last weekend reviewed and discussed with patient's mother (2) Pure hypercholesterolemia: Code(s): E78.00 - Pure hypercholesterolemia, unspecified Plan: His mother is advised that patient's cholesterol levels from his labs done last weekend are near goal but should be lower considering that he is on medications for cholesterol Reinforced low cholesterol diet Continue Atorvastatin 20 mg QD (3) Epilepsy: Code(s): G40.909 - Epilepsy, unspecified, not intractable, without status epilepticus Qualifiers: Epilepsy type: unspecified Intractability: not intractable Status epilepticus: without status epilepticus Qualified Code(s): G40.909 - Epilepsy, unspecified, not intractable, without status epilepticus Plan: Continue Levetiracetam 1000 mg BID Continue Carbamazepine ER 500 mg BID (100 mg caps - 5 caps BID) Follow up with neurology as scheduled - is now going to [facility] Neurology (used to see Dr. Fierro until he retired a couple of years ago) (4) Cervical dystonia: Code(s): G24.3 - Spasmodic torticollis Plan: Follow up with neurology as scheduled - gets Botox injections into both sides of the neck regularly every 3 months from Neurology Was tried on Nurtec ODT, which patient's mother states did not help much Has was started on Sinemet 25-100 mg to take PRN but no more than 2 tablets in 24 hours last year but these have been discontinued since (5) Vitamin D deficiency: Code(s): E55.9 - Vitamin D deficiency, unspecified Plan: Continue Vitamin D3 2000 units QD (6) Dry skin dermatitis: Code(s): L85.3 - Xerosis cutis Plan: Continue Lac Hydrin 12% cream BID PRN - Rx refilled (7) Incontinence: Code(s): R32 - Unspecified urinary incontinence Qualifiers: Incontinence type: urinary Urinary Incontinence type: unspecified incontinence Qualified Code(s): R32 - Unspecified urinary incontinence Plan: Occurring mostly at bedtime Per request, will provide with Rx for adult briefs for him to use at night (8) Autism: Code(s): F84.0 - Autistic disorder Plan: Continue Clonidine 0.1 mg twice a day in AM and at 4 pm and Clonidine 0.2 mg daily at bedtime Follow up with psychiatry as scheduled (9) Obsessive compulsive disorder: Code(s): F42.9 - Obsessive-compulsive disorder, unspecified Qualifiers: Obsessive-compulsive disorder type: unspecified Qualified Code(s): F42.9 - Obsessive-compulsive disorder, unspecified Plan: Continue Benztropine Mesylate 1 mg BID, Risperdal 3 mg at 8 am and 2.5 mg at 4 pm (is slowly being weaned down by psychiatry), Gabapentin 600 mg + 400 mg (total of 1000 mg) BID and Trazodone 150 mg + 100 mg (total of 250 mg) Q HS Follow up with psychiatry as scheduled (10) Obesity (BMI 30-39.9): Code(s): E66.9 - Obesity, unspecified Plan: Reinforced diet/exercise as tolerated/lose weight - his mother is cautioned that patient has gained about 30 pounds since this time last year Plan Follow up in 6 months Medications: New [ADULT BRIEFS (2XL)] As directed 100 ea 3RF R32 - Unspecified urinary incontinence Refilled ammonium lactate 12% 1 appl topical BID 30 days PRN 385 grams 12RF dry skin Coding Level of Care Code Est Pt Prev Care [id number]([id number]) Diagnoses Annual physical exam Z00.00 Pure hypercholesterolemia E78.00 Nonintractable epilepsy without status epilepticus, unspecified epilepsy type G40.909 Epilepsy type: unspecified Intractability: not intractable Status epilepticus: without status epilepticus Cervical dystonia G24.3 Vitamin D deficiency E55.9 Dry skin dermatitis L85.3 Urinary incontinence, unspecified type R32 Incontinence type: urinary Urinary Incontinence type: unspecified incontinence Autism F84.0 Obsessive-compulsive disorder, unspecified type F42.9 Obsessive-compulsive disorder type: unspecified Obesity (BMI 30-39.9) E66.9
== END 2023-10-11 09:52 | disposition home or self-care (01) ==
PROVIDERS: PCP Internal Medicine; Visit Provider Internal Medicine
DX: Z00.00 Encounter for general adult medical examination without abnormal findings (principal); G40.909 Epilepsy, unspecified, not intractable, without status epilepticus; Z68.31 Body mass index [BMI] 31.0-31.9, adult; E66.9 Obesity, unspecified; E78.00 Pure hypercholesterolemia, unspecified; G24.3 Spasmodic torticollis; E55.9 Vitamin D deficiency, unspecified; L85.3 Xerosis cutis; R32 Unspecified urinary incontinence; F84.0 Autistic disorder; F42.9 Obsessive-compulsive disorder, unspecified
CPT/HCPCS: 99395

== ENCOUNTER 2024-04-14 09:13 | Outpatient (AMB) | payer MEDICARE, MEDICAID, SELFPAY ==
[2024-04-14 09:16] VITALS: BP 110/68; PULSE 74; O2SAT 96; BMI 31.5
--- NOTE | 2024-04-14 09:16 | MHC.PC.OV ---
Vital Signs 04/14/24 09:16 Height 6 ft 4 in Weight 259 lb BMI 31.5 BP 110/68 Blood Pressure Location Lt brachial Position Sitting Pulse 74 Pulse Source Pulse Oximeter Pulse Oximetry (%) 96 Oxygen Delivery Method Room Air Intake Visit Reasons: autism, epilepsy Neon Tube Pumper Required: No Accompanied by: Self / Same As Patient Allergies No Known Allergies [No Known Allergies*] Allergy (Verified 04/14/24 09:46) Medication List - Last Reconciled 04/14/24 by Low Isaac MD acetaminophen 650 mg (2 x 325 mg) PO Q4-6H PRN 30 days [ADULT BRIEFS (2XL) As directed] ammonium lactate 12% 1 appl topical BID PRN 30 days atorvastatin 20 mg PO DAILY benztropine 1 mg PO BID carbamazepine ER 500 mg (5 x 100 mg) PO BID 30 days cholecalciferol (vitamin D3) (Vitamin D3) 50 mcg PO DAILY clonidine HCl 0.2 mg PO BEDTIME 90 days clonidine HCl 0.1 mg PO BID 90 days gabapentin 600 mg PO BID 30 days gabapentin 400 mg PO TID levetiracetam 1,000 mg PO BID lorazepam 1 mg PO BID onabotulinumtoxinA units IM [id number] risperidone 3 mg PO QAM risperidone 2 mg PO QPM risperidone 0.5 mg PO QPM tizanidine 4 mg PO Q8H PRN 30 days trazodone 150 mg PO BEDTIME trazodone 100 mg PO BEDTIME Tobacco use date assessed: 04/14/24 Dental Screening Dental Screen Date: 04/14/24 Did you have a dental visit in the last 12 months?: Yes Did you have a dental problem in the last 6 months where you did not have access to dental care?: No Was dental information given to patient?: Patient has dentist HPI autism, epilepsy HPI Details Patient comes in today for his follow up visit - is accompanied as usual by his mother, who is his primary caregiver, guardian and HCP Information is obtained mostly from his mother as patient is not able to participate in meaningful conversations due to his psychiatric issues Patient is reportedly doing well and has had no acute issues aside from his seizures - he supposedly had a mild episode yesterday, per his mother, who states that patient still has seizure episodes about once a month but these are mostly mild He continues to receive Botox injections into both sides of his neck for cervical dystonia with anterocollis from neurology every 3 months, and his mother states that the Botox injections have been helping him a lot He also continues to follow up with neurology every 6 months for his epilepsy His mother states that patient enjoys going to the day program regularly as the program helps keep him occupied and engaged Patient presently has no headaches or dizziness He denies any chest pains or SOB No nausea/vomiting, no abdominal pain No change in bowel habits noted He needs his Lac Hydrin cream Rx refilled today He has not yet been able to go and get his follow up labs done - his mother states that she was advised that he has no current lab orders in his file when she called up to ask about this a couple of weeks ago [facility] Medical History Cervical dystonia Obesity (BMI 30-39.9) Obsessive compulsive disorder Autism Vitamin D deficiency Pure hypercholesterolemia Epilepsy Surgical History History of elbow surgery History of excision of mass Family History Mother Medical history unknown Social History Housing: Apartment Alcohol intake: never Patient Tobacco Use Status: Never used Tobacco e-Cigarette/Vaping Use: Never Used Second Hand Smoke Exposure: No service: No Current occupational status: disabled Cognitive needs: Yes Hearing needs: No Vision needs: No Questionnaire PHQ-9 Over the last 2 weeks, how often have you been bothered by any of the following problems? 1. Little interest or pleasure in doing things: not at all 2. Feeling down, depressed, or hopeless: not at all 3. Trouble falling or staying asleep, or sleeping too much: not at all 4. Feeling tired or having little energy: not at all 5. Poor appetite or overeating: not at all 6. Feeling bad about yourself - or that you are a failure or have let yourself or your family down: not at all 7. Trouble concentrating on things, such as reading the newspaper or watching television: not at all 8. Moving or speaking so slowly that other people could have noticed. Or the opposite - being so fidgety or restless that you have been moving around a lot more than usual: not at all 9. Thoughts that you would be better off or of hurting yourself in some way: not at all Total score: 0 Depression Screening Interpretation: Negative Depression Screening Done: Yes 37042 - PHQ-9 Billing: Yes Source: Developed by Drs. William Romero, Gi Jarrell, Praneeth Baez and colleagues, with an educational donta from [employer]. Thrive Questionnaire Date Thrive assessed: 04/14/24 I am a: Parent/Caregiver What is your living situation today?: I have a steady place to live Within the past 12 months, did the food you bought not last and you didn't have the money to get more?: Never true Within the past 12 months, did you worry whether your food would run out before you got money to buy more?: Never true Do you have trouble paying for medicines?: No Do you have trouble getting transportation to medical appointments?: No Do you have trouble paying your heating and electricity bill?: No Do you have trouble taking care of your child, family member or friend?: No Do you have trouble with day-to-day activities such as bathing, preparing meals, shopping, managing finances, etc.?: No Are you currently unemployed and looking for a job?: No Are you interested in more education?: No Please select the resources that you would like help with: None Currently or been in a relationship where the following occur: No concerns reported THRIVE Score: 0 AUDIT C Alcohol Use Questionnaire (AUDIT-C) 1. How often do you have a drink containing alcohol?: Never 3. How often do you have six or more drinks on one occasion?: Never Total Score: 0 Score Reviewed/Action Taken: Yes DANII-7 AMB Questionnaire DANII-7 Date DANII - 7 assessed: 04/14/24 Feeling nervous, anxious, or on edge: 1 = Several days Not being able to stop or control worryin = Not at all Worrying too much about different things: 0 = Not at all Trouble relaxin = Not at all Being so restless that it is hard to sit still: 0 = Not at all Becoming easily annoyed or irritable: 0 = Not at all Feeling afraid as if something awful might happen: 0 = Not at all Total DANII-7 score (0-4 normal; 5-9 mild; 10-14 moderate; 15-21 severe): 1 Source: Developed by Drs. William Romero, Gi Jarrell, Praneeth Baez and colleagues, with an educational donta from [employer]. Review of Systems Const Details: Information/ROS is obtained mostly through patient's mother as patient is unable to provide info due to his mental and intellectual disabilities Denies chills, Denies fatigue, Denies fever(s) and Denies headache(s) ENT Denies dysphagia, Denies dizziness, Denies otalgia, Denies headache(s), Reports neck pain (due to cervical dystonia but symptoms are well-controlled on Botox inj.), Denies odynophagia and Denies sore throat Card Denies chest pain, Denies palpitations and Denies dyspnea Resp Denies chest congestion, Denies cough, Denies dyspnea and Denies wheezing GI Denies abdominal pain, Denies constipation, Denies dysphagia, Denies heartburn, Denies diarrhea, Denies nausea, Denies odynophagia and Denies vomiting Details: wets bed accidentally at night at times Denies dysuria, Denies urinary frequency and Reports urinary incontinence (at times, mostly at night) Musc Denies back pain, Denies arthralgias and Reports neck pain (due to cervical dystonia but symptoms are well-controlled on Botox inj.) Skin/Breast Reports lesions ((+) small wart-like lesions on the right upper eyelid) and Denies rash Neuro Denies dizziness, Denies headache(s) and Reports convulsions (on and off, mostly mild (per patient's mother)) Endo Denies fatigue and Denies palpitations Aller/Immun Denies wheezing Physical exam (Primary Care) Vital Signs: Last Vital Signs Pulse 74 04/14/24 09:16 BP 110/68 04/14/24 09:16 Pulse Ox 96 04/14/24 09:16 Oxygen Delivery Method Room Air 04/14/24 09:16 BMI result Body Mass Index 31.5 Tobacco/Smoking Status: Tobacco use Status Tobacco use date assessed 04/14/24 04/14/24 09:22 Patient Tobacco Use Status Never used Tobacco 04/14/24 09:22 e-Cigarette/Vaping Use Never Used 04/14/24 09:22 PHQ-9: PHQ-9 Score PHQ-9: Total score 0 04/14/24 09:22 Depression Screening Interpretation: Negative Thrive Assessment: Date of Thrive Assessment Date Thrive assessed 04/14/24 04/14/24 09:22 Currently or been in a relationship where the following occur: No concerns reported Const General: no acute distress and alert Orientation/consciousness: Other orientation findings (unable to assess orientation due to mental disability) Limitations: behavioral limitations (is autistic) HENMT Ears: TM's normal bilaterally and EAC's normal Throat: Yes posterior oropharynx normal and Yes tonsils normal (no TP congestion) Eyes Eyelids: Yes eyelid abnormality ((+) small wart-like lesion(s) on the right upper eyelid) Neck Neck: Yes no lymphadenopathy and Yes supple Thyroid: Thyroid normal Resp Auscultation: clear to auscultation bilaterally, no rales and no wheezes Cardio Rate: regular rate Rhythm: regular rhythm Heart sounds: no murmurs GI Palpation (GI): Soft to palpation and nontender Auscultation: normal bowel sounds General: Yes no CVA tenderness Back/Spine/Pelvis Back: no CVA tenderness Thoracic/Lumbar Spine: thoracic and lumbar spine normal to inspection Skin Rashes: no rashes Neuro Other: neuro exam limited due to patient's disabilities and his inability to fully comply with exam General: moves all extremities and no focal motor deficits Gait exam (Neuro): Normal gait present Extrem General: Yes no clubbing, cyanosis or edema Assessment and Plan Assessment & Plan (1) Pure hypercholesterolemia: Code(s): E78.00 - Pure hypercholesterolemia, unspecified Plan: Patient has not gotten his follow up labs done yet - his mother is advised to bring him to the lab to get these done (labs reordered) CARRIE Reinforced low cholesterol diet Continue Atorvastatin 20 mg QD (2) Epilepsy: Code(s): G40.909 - Epilepsy, unspecified, not intractable, without status epilepticus Qualifiers: Epilepsy type: unspecified Intractability: not intractable Status epilepticus: without status epilepticus Qualified Code(s): G40.909 - Epilepsy, unspecified, not intractable, without status epilepticus Plan: Continue Levetiracetam 1000 mg BID and Carbamazepine ER 500 mg BID (100 mg caps - 5 caps BID) Follow up with neurology as scheduled - is now going to [facility] and is seen by neurology now every 6 months (3) Cervical dystonia: Code(s): G24.3 - Spasmodic torticollis Plan: Follow up with neurology as scheduled - he is still getting Botox injections into both sides of the neck regularly every 3 months from Neurology He was tried on Nurtec ODT, which patient's mother states did not help much He was also started on Sinemet 25-100 mg previously to take PRN but no more than 2 tablets in 24 hours last year but these have been discontinued since (4) Common wart of eyelid: Code(s): B07.8 - Other viral warts Plan: Mostly over the right upper eyelid Per request from patient's mother, will refer him to dermatology to see about having these removed if possible (5) Vitamin D deficiency: Code(s): E55.9 - Vitamin D deficiency, unspecified Plan: Continue Vitamin D3 2000 units QD (6) Dry skin dermatitis: Code(s): L85.3 - Xerosis cutis Plan: Continue Lac Hydrin 12% cream BID PRN - Rx refilled (7) Incontinence: Code(s): R32 - Unspecified urinary incontinence Qualifiers: Incontinence type: urinary Urinary Incontinence type: unspecified incontinence Qualified Code(s): R32 - Unspecified urinary incontinence Plan: Occurring mostly at bedtime, at times and he wears adult pull ups at night to accomodate for this (8) Autism: Code(s): F84.0 - Autistic disorder Plan: Continue Clonidine 0.1 mg twice a day in AM and at 4 pm and Clonidine 0.2 mg daily at bedtime Follow up with psychiatry as scheduled (9) Obsessive compulsive disorder: Code(s): F42.9 - Obsessive-compulsive disorder, unspecified Qualifiers: Obsessive-compulsive disorder type: unspecified Qualified Code(s): F42.9 - Obsessive-compulsive disorder, unspecified Plan: Continue Benztropine Mesylate 1 mg BID, Risperdal 3 mg at 8 am and 2.5 mg at 4 pm (is slowly being weaned down by psychiatry), Gabapentin 600 mg + 400 mg (total of 1000 mg) BID and Trazodone 150 mg + 100 mg (total of 250 mg) Q HS Follow up with psychiatry as scheduled (10) Obesity (BMI 30-39.9): Code(s): E66.9 - Obesity, unspecified Plan: Reinforced diet/exercise as tolerated/lose weight - patient has lost a few pounds since his last visit Plan To return in 6 months for annual physical examination Orders: Orders TSH reflex Free T4 Today E78.00 - Pure hypercholesterolemia, unspecified, G40.909 - Epilepsy, unspecified, not intractable, without status epilepticus UA CC w/rflx Micro + Cult Today G40.909 - Epilepsy, unspecified, not intractable, without status epilepticus, R30.0 - Dysuria Vitamin D 25-OH Total Today E55.9 - Vitamin D deficiency, unspecified, G40.909 - Epilepsy, unspecified, not intractable, without status epilepticus Carbamazepine Tegretol Today G40.909 - Epilepsy, unspecified, not intractable, without status epilepticus Levetiracetam Keppra Today G40.909 - Epilepsy, unspecified, not intractable, without status epilepticus Complete Blood Count Auto Diff Today D64.9 - Anemia, unspecified, G40.909 - Epilepsy, unspecified, not intractable, without status epilepticus Comprehensive [place]. Panel Fast Today E78.00 - Pure hypercholesterolemia, unspecified, G40.909 - Epilepsy, unspecified, not intractable, without status epilepticus Lipid Panel Today E78.00 - Pure hypercholesterolemia, unspecified, G40.909 - Epilepsy, unspecified, not intractable, without status epilepticus Referrals Dermatology Referral B07.8 - Other viral warts Medications: Refilled ammonium lactate 12% 1 appl topical BID 30 days PRN 385 grams 12RF dry skin Coding Level of Care Code Est Pt Level 4 (82574) Diagnoses Pure hypercholesterolemia E78.00 Nonintractable epilepsy without status epilepticus, unspecified epilepsy type G40.909 Epilepsy type: unspecified Intractability: not intractable Status epilepticus: without status epilepticus Cervical dystonia G24.3 Common wart of eyelid B07.8 Vitamin D deficiency E55.9 Dry skin dermatitis L85.3 Urinary incontinence, unspecified type R32 Incontinence type: urinary Urinary Incontinence type: unspecified incontinence Autism F84.0 Obsessive-compulsive disorder, unspecified type F42.9 Obsessive-compulsive disorder type: unspecified Obesity (BMI 30-39.9) E66.9
== END 2024-04-14 09:55 | disposition home or self-care (01) ==
PROVIDERS: PCP Internal Medicine; Visit Provider Internal Medicine
DX: E78.00 Pure hypercholesterolemia, unspecified (principal); G40.909 Epilepsy, unspecified, not intractable, without status epilepticus; G24.3 Spasmodic torticollis; B07.8 Other viral warts; E55.9 Vitamin D deficiency, unspecified; L85.3 Xerosis cutis; R32 Unspecified urinary incontinence; F84.0 Autistic disorder; F42.9 Obsessive-compulsive disorder, unspecified; E66.9 Obesity, unspecified
CPT/HCPCS: 99214

== ENCOUNTER 2024-05-28 12:47 | Emergency (ER) | payer MEDICARE, MEDICAID, SELFPAY ==
[2024-05-28 12:53] VITALS: BP 120/88; PULSE 78; O2SAT 95
[2024-05-28 12:58] VITALS: BMI 28.4
[2024-05-28 13:05] VITALS: BP 126/78; PULSE 89; RESP 16; TEMP 37.1; O2SAT 96
--- NOTE | 2024-05-28 13:22 | ED_ITS ---
HPI - General Adult General Chief complaint: Seizure Stated complaint: WIT DANIAL, TAKES TRE,FROM [facility] PER EMS Source: patient Mode of arrival: EMS Limitations: other (Autism spectrum disorder) History of Present Illness HPI narrative: This is a 39-year-old man with a past medical history of autism spectrum disorder, epilepsy, hypercholesterolemia, OCD, cervical dystonia who presents via EMS for evaluation of seizure. snf staff member states that they were [place]. She states that he had a witnessed 2 minutes tonic-clonic seizure. She states he was confused afterwards. She states no urinary incontinence. She states that he did fall forward and hit his head. Patient indicates that the abrasions hurt. Mother states that he has been taking his medications as prescribed. She states that he did not take is gabapentin at noon today because of the seizure at that time. She states that he had a seizure on Saturday May 18, 2024. She states that this was brief and she provided him oral diazepam. She states at this time he is acting his usual self. Mother and [facility] staff member state no associated episodes of vomiting. They state he takes no blood thinning medications. They state no recent fevers. Mother states that he was back to his baseline mentation at this time. She states that she does note some lip movement at time of his history that is concerning for potential recurrence of seizure and requests diazepam to prevent seizure episode. Related Data Home Medications ?Medication ?Instructions ?Recorded ?Confirmed benztropine 1 mg tablet 1 mg PO BID 07/21/20 04/14/24 lorazepam 1 mg tablet 1 mg PO BID 07/21/20 04/14/24 trazodone 100 mg tablet 100 mg PO BEDTIME 07/21/20 04/14/24 trazodone 150 mg tablet 150 mg PO BEDTIME 07/21/20 04/14/24 gabapentin 400 mg capsule 400 mg PO TID 04/10/23 04/14/24 onabotulinumtoxinA 100 unit unit IM [id number] 10/11/23 04/14/24 solution for injection risperidone 0.25 mg tablet 0.5 mg PO QPM 10/11/23 04/14/24 risperidone 2 mg tablet 2 mg PO QPM 10/11/23 04/14/24 risperidone 3 mg tablet 3 mg PO QAM 03/07/24 09/09/24 Previous Rx's ?Medication ?Instructions ?Recorded gabapentin 600 mg tablet 600 mg PO BID 30 days #60 tabs 05/26/22 carbamazepine 100 mg 500 mg (5 x 100 mg) PO BID 30 days 01/03/23 capsule,extended release [id number] #300 caps acetaminophen 325 mg tablet 650 mg (2 x 325 mg) PO Q4-6H PRN 01/15/23 headaches or pain 30 days #240 tabs tizanidine 4 mg tablet 4 mg PO Q8H PRN muscle spasms 30 01/15/23 days #90 tabs cholecalciferol (vitamin D3) 50 50 mcg PO DAILY #90 caps 09/25/23 mcg (2,000 unit) capsule (Vitamin D3) ADULT BRIEFS (2XL) #100 ea 10/11/23 levetiracetam 1,000 mg tablet 1,000 mg PO BID #180 tabs 03/11/24 clonidine HCl 0.1 mg tablet 0.1 mg PO BID 90 days #180 tabs 04/08/24 ammonium lactate 12 % topical cream 1 appl topical BID PRN dry skin 30 04/14/24 days #385 grams atorvastatin 20 mg tablet 20 mg PO DAILY #90 tabs 04/29/24 clonidine HCl 0.2 mg tablet 0.2 mg PO BEDTIME 90 days #90 tabs 04/29/24 Allergies Allergy/AdvReac Type Severity Reaction Status Date / Time No Known Allergies Allergy Verified 05/28/24 13:01 [No Known Allergies*] Review of Systems 2 Review of Systems: ROS as per HPI [facility] Past Medical History Medical History Cervical dystonia Obesity (BMI 30-39.9) Obsessive compulsive disorder Autism Vitamin D deficiency Pure hypercholesterolemia Epilepsy Surgical History History of elbow surgery History of excision of mass Family History Family History Mother Medical history unknown Social History Social History Housing: Apartment Alcohol intake: never Patient Tobacco Use Status: Never used Tobacco Smoked in Last 30 Days: No e-Cigarette/Vaping Use: Never Used Second Hand Smoke Exposure: No Use of substances other than those prescribed or required for medical reasons: No Advance Directives: No Advance Directives Information Provided: Yes Do you have a plan to hurt others: No Plan service: No Current occupational status: disabled Cognitive needs: Yes Hearing needs: No Vision needs: No Physical Exam ED Vital Signs: Vital Signs - 24 hr 05/28/24 13:05 05/28/24 14:00 Temperature 98.7 F 98.4 F Pulse Rate 89 90 Respiratory Rate 16 31 H Blood Pressure 126/78 134/95 H Pulse Oximetry 96 89 L Oxygen Delivery Method Room Air Nasal Cannula Oxygen Flow Rate 3 BMI result Body Mass Index 28.4 Gen: NAD, awake and alert, following commands HEENT: NCAT, EOMI, normal conjunctiva, no nuchal rigidity, no buccal or lingual lacerations, no hemotympanum, no periorbital or postauricular ecchymosis, no CSF otorrhea/rhinorrhea CV: RRR Pulm: CTAB, no increased work of breathing GI: Soft, NTND, no rebound, guarding or rigidity MSK: Bilateral upper and lower extremity compartments are soft, no midline vertebral tenderness to palpation, full active range of motion with neck flexion/extension and lateral 45 degree rotation Neuro: Grossly non focal, symmetrical face, midline tongue protrusion and equal strength bilateral upper and lower extremities, sensation intact to light touch in bilateral upper and lower extremities Medications Administered Discontinued Medications Generic Name Dose Route Start Last Admin Trade Name Freq PRN Reason Stop Dose Admin Bacitracin 1 appl 05/28/24 13:27 05/28/24 13:45 Bacitracin Oint 0.9 Gm Packet TOPICAL 05/28/24 13:28 1 appl ONCE ONE Administration Protocol Diazepam 2.5 mg 05/28/24 13:21 05/28/24 13:37 Diazepam 10 Mg/2 Ml Cartridge IVPUSH 05/28/24 13:22 2.5 mg STAT STA Administration Levetiracetam 1,000 mg in 100 mls @ 400 mls/hr 05/28/24 13:21 05/28/24 14:00 Keppra IV 05/28/24 13:35 Infused ONCE ONE Infusion Medical Decision Making Medical Decision Making MDM Narrative: Differential diagnosis includes, but is not limited to seizure, electrolyte abnormality. Patient is afebrile and medically stable. Exam is benign and reassuring. Patient has no focal neurological deficits. Patient is afebrile, with no preceding illness or nuchal rigidity on examination to suggest meningitis/encephalitis so this is of very low clinical suspicion. There are noted abrasions, bacitracin is applied. Mother states tetanus is up-to-date. I reviewed and interpreted labs as below, which are reassuring. 1332 - the patient presents with a past medical history of seizure and with concern of seizure today. We will provide IV Keppra load and give him of this concern and familiarity with preceding as signs of seizure we will provide IV diazepam at this time and plan for a period of observation. I considered a CT imaging for evaluation of traumatic head injury given history of seizure with subsequent head injury, but examination is reassuring. Patient does not have any signs of basilar skull fracture as such as hemotympanum, raccoon eyes, goss sign, CSF O2 via/rhinorrhea is not take any blood thinning medications. He is at baseline mentation. For this reason, I performed shared decision- making with the mother and it is reasonable to forego CT imaging at this time and will plan for period of observation. I considered a CT imaging of the cervical spine, but the patient has no midline vertebral tenderness to palpation and has intact active range motion of the neck per exam above and for this reason CT imaging of the cervical spine is not obtained. Patient experienced transient hypoxia with need for supplemental oxygen via nasal cannula following administration of diazepam, which resolves with no intervention. I suspect this is likely secondary to sedative effects of diazepam. On re-examination, patient is well-appearing and in no acute distress. Patient was observed in the emergency room with no further seizure activity. ?Mother states that patient has been doing well and does not appear to be having any signs concerning for recurrent seizure activity. She states that he is back to his baseline mentation. There is no indication for further emergent evaluation in this otherwise well-appearing patient as above. ?Mother and fdc staff member are provided written and verbal instructions, educational materials, recommendations for outpatient follow-up, strict return precautions and teach back is performed. ?They state understanding and agreement with plan of care. Mother states that she has diazepam at home as needed. ?Patient is discharged home in stable and improved condition. Critical Care Time: A total of 35 minutes spent in direct patient care with coordinating critical resuscitation, procedures, reviewing records, discussing with consultants, reviewing labs, and/or managing patient. Admission/Observation Consideration of admission/observation: Escalation of care including admission/observation considered Lab Data MDM Lab Attestation statement: I reviewed the patient's lab results. 05/28/24 13:43 05/28/24 13:43 Labs: Lab Results 05/28/24 Range/Units 13:43 WBC 3.7 L (4.8-10.8) X10*3/uL RBC 4.92 (4.60-5.80) X10*6/uL Hgb 13.6 L (14.0-18.0) g/dl Hct 40.7 L (42.0-52.0) % MCV 82.7 (80.0-98.0) fL MCH 27.6 (27.0-33.0) pg MCHC 33.4 (31.0-36.0) g/dl RDW 12.4 (11.0-16.0) % Plt Count 162 (160-400) X10*3/uL MPV 9.9 (9.4-12.4) fL Immature Gran % (Auto) 0.3 (0.0-0.4) % Neut % (Auto) 67.2 (45-73) % Lymph % (Auto) 19.5 L (20-40) % Iron % (Auto) 11.1 H (2-11) % Eos % (Auto) 1.6 (0-4) % Baso % (Auto) 0.3 (0-2) % Lymph # (Auto) 0.7 L (1.2-4.9) X10*3/uL Iron # (Auto) 0.4 (0.1-1.2) X10*3/uL Eos # (Auto) 0.1 (0.0-0.4) X10*3/uL Baso # (Auto) 0.0 (0.0-0.2) X10*3/uL Abs Immat Gran (auto) 0.01 (0.00-0.03) X10*3/uL Absolute Neuts (auto) 2.5 (2.0-8.3) x10*3/uL Absolute Nucleated RBC 0.000 (0.0-0.012) X10*3/uL Nucleated RBC % (auto) 0.0 (0.0-0.2) /100WBC Sodium 136 (135-145) mmol/L Potassium 4.5 (3.3-5.1) mmol/L Chloride 105 (96-108) mmol/L Carbon Dioxide 24 (22-29) mmol/L Anion Gap 12 (12-20) BUN 10 (9-16) mg/dL Creatinine 0.86 (0.5-1.4) mg/dL Estim Creat Clear Calc 155.4 Estimated GFR > 60 Random Glucose 89 (60-115) mg/dL Lactic Acid 0.7 (0.5-2.0) mmol/L Calcium 8.7 (8.4-10.2) mg/dL Independent Historian snf staff member and mother provide additional history Discharge Plan Discharge Clinical Impression: Seizure Patient Disposition: Home, Self-Care Additional Instructions: Ethan was evaluated in the emergency room. His vital signs were normal and he did not have fever. His blood work was reassuring. He was provided a dose of Keppra as well as diazepam. He was observed here in the emergency room with no further episodes of seizure. Please have him follow up with his primary care doctor and neurologist within 1 week. Return to the emergency room with any new concerns or injuries. Prescriptions: No Action gabapentin 600 mg tablet 600 mg PO BID 30 Days Qty: 60 5RF Rx Instructions: total of 1000 mg BID carbamazepine 100 mg capsule, ER multiphase 12 hr 500 mg PO BID 30 Days Qty: 300 3RF tizanidine 4 mg tablet 4 mg PO Q8H PRN (Reason: muscle spasms) 30 Days Qty: 90 0RF acetaminophen 325 mg tablet 650 mg PO Q4-6H PRN (Reason: headaches or pain) 30 Days Qty: 240 5RF cholecalciferol (vitamin D3) [Vitamin D3] 50 mcg (2,000 unit) capsule 50 mcg PO DAILY Qty: 90 3RF levetiracetam 1,000 mg tablet 1,000 mg PO BID Qty: 180 0RF clonidine HCl 0.1 mg tablet 0.1 mg PO BID 90 Days Qty: 180 0RF Rx Instructions: in the morning and at 4 pm in the afternoon atorvastatin 20 mg tablet 20 mg PO DAILY Qty: 90 1RF clonidine HCl 0.2 mg tablet 0.2 mg PO BEDTIME 90 Days Qty: 90 1RF benztropine 1 mg tablet 1 mg PO BID trazodone 150 mg tablet 150 mg PO BEDTIME Rx Instructions: total of 250 mg at bedtime trazodone 100 mg tablet 100 mg PO BEDTIME Rx Instructions: total of 250 mg at bedtime lorazepam 1 mg tablet 1 mg PO BID risperidone 3 mg tablet 3 mg PO QAM Rx Instructions: at 8 am onabotulinumtoxinA 100 unit recon soln IM [id number] gabapentin 400 mg capsule 400 mg PO TID Rx Instructions: total of 1000 mg BID and 400 mg at noon daily risperidone 2 mg tablet 2 mg PO QPM Rx Instructions: at 4 pm risperidone 0.25 mg tablet 0.5 mg PO QPM Rx Instructions: at 4 pm (DME) ADULT BRIEFS (2XL) 2XL See Rx Instructions .Route .MEDSUPPLY Qty: 100 3RF Rx Instructions: As directed ammonium lactate 12 % cream 1 appl topical BID PRN (Reason: dry skin) 30 Days Qty: 385 12RF Print Language: Faroese
[2024-05-28] MEDS: diazePAM 10 MG/2 ML CARTRIDGE 2.5 MG IVPUSH (13:37)
[2024-05-28] MEDS: levETIRAcetam in NaCl (iso-os) 1,000 MG/100 ML PIGGYBACK 400 MG IV (13:39)
[2024-05-28] MEDS: Bacitracin Oint 0.9 GM PACKET 1 APPL TOPICAL (13:45)
[2024-05-28 13:51] LABS: MANUAL DIFF FLAG NO
[2024-05-28 13:53] LABS: Basophils Percent Auto 0.3 % (0-2); Eosinophils Absolute Auto 0.1 X10*3/uL (0.0-0.4); Eosinophils Percent Auto 1.6 % (0-4); Hematocrit 40.7 % (42.0-52.0); Hemoglobin 13.6 g/dl (14.0-18.0); Imm Gran Abs Auto 0.01 X10*3/uL (0.00-0.03); Imm Gran Pct Auto 0.3 % (0.0-0.4); Lymphocytes Absolute Auto 0.7 X10*3/uL (1.2-4.9); Lymphocytes Percent Auto 19.5 % (20-40); Mean Corpuscular HGB Conc 33.4 g/dl (31.0-36.0); Mean Corpuscular Hemoglobin 27.6 pg (27.0-33.0); Mean Corpuscular Volume 82.7 fL (80.0-98.0); Mean Platelet Volume 9.9 fL (9.4-12.4); Monocytes Absolute Auto 0.4 X10*3/uL (0.1-1.2); Monocytes Percent Auto 11.1 % (2-11); Neutrophils Absolute Auto 2.5 x10*3/uL (2.0-8.3); Neutrophils Percent Auto 67.2 % (45-73); Platelet Count 162 X10*3/uL (160-400); Red Blood Count 4.92 X10*6/uL (4.60-5.80); Red Cell Distribution Width 12.4 % (11.0-16.0); White Blood Count 3.7 X10*3/uL (4.8-10.8)
[2024-05-28 14:00] VITALS: BP 134/95; PULSE 90; RESP 31; TEMP 36.9; O2SAT 89
[2024-05-28 14:02] LABS: Lactic Acid 0.7 mmol/L (0.5-2.0)
[2024-05-28 14:11] LABS: Anion Gap 12 (12-20); Blood Urea Nitrogen 10 mg/dL (9-16); Calcium 8.7 mg/dL (8.4-10.2); Carbon Dioxide 24 mmol/L (22-29); Chloride 105 mmol/L (96-108); Creatinine Clr Calc Pharmacy 155.4; Estimated Glomerular Filt Rate > 60; Glucose Random 89 mg/dL (60-115); Potassium 4.5 mmol/L (3.3-5.1); Sodium 136 mmol/L (135-145)
--- NOTE | 2024-05-28 14:15 | PC.NURSE ---
late charting due to patient care, patient arrives VIA EMS after witnessed seizure from a long-term. patient with history of seizure disorder and per [employer] insurance recieved all of his medications today. patient hx of nonverbal autism, per staff member when patient had seizure patient fell to ground and hit head, patient presenting with small abrasions to forehead and under nose. when asking patient if he was in pain patient points to forehead abrasion. 18g PIV placed by EMS in LAC. patient attempts to take IV out, IV wrapped with gauze and covered for comfort. per staff patient does not like being touched or moved around, pt allowed this RN to assess, LSCTA, S1&S2 appreciated on auscultation, patient placed on awake overnight monitor and VS WNL at this time. patient allowed this RN to draw labs and medicate per . patient resting on stretcher at this time, calm and cooperative with this RN, plan of care remains ongoing
[2024-05-28 14:59] VITALS: BP 115/73; PULSE 85; RESP 14; TEMP 36.9; O2SAT 97
--- NOTE | 2024-05-28 15:06 | PC.NURSE ---
patient ambulatory with steady gait out of department, mom to drive [facility]
== END 2024-05-28 15:06 | disposition home or self-care (01) ==
PROVIDERS: Emergency Provider Emergency Medicine; PCP Internal Medicine
DX: R56.9 Unspecified convulsions (principal); E78.00 Pure hypercholesterolemia, unspecified; Z79.899 Other long term (current) drug therapy
CPT/HCPCS: 36415; 80048; 83605; 85025; 96365; 96375; 99284; J1953; J3360

== ENCOUNTER 2024-06-30 13:14 | Outpatient (AMB) | payer MEDICARE, MEDICAID, SELFPAY ==
[2024-06-30 13:16] VITALS: BP 124/80; PULSE 88; O2SAT 98; BMI 31.5
--- NOTE | 2024-06-30 13:16 | MHC.PC.OV ---
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 Accompanied by: Self / Same As Patient Allergies No Known Allergies [No Known Allergies*] Allergy (Verified 06/30/24 13:46) Medication List - Last Reconciled 06/30/24 by Low Isaac MD acetaminophen 650 mg (2 x 325 mg) PO Q4-6H PRN 30 days [ADULT BRIEFS (2XL) As directed] ammonium lactate 12% 1 appl topical BID PRN 30 days atorvastatin 20 mg PO DAILY benztropine 1 mg PO BID carbamazepine ER 500 mg (5 x 100 mg) PO BID 30 days cholecalciferol (vitamin D3) (Vitamin D3) 50 mcg PO DAILY clonidine HCl 0.1 mg PO BID 90 days clonidine HCl 0.2 mg PO BEDTIME 90 days gabapentin 600 mg PO BID 30 days gabapentin 400 mg PO TID levetiracetam 1,750 mg PO BID lorazepam 1 mg PO BID onabotulinumtoxinA units IM [id number] risperidone 3 mg PO QAM risperidone 2 mg PO QPM risperidone 0.5 mg PO QPM tizanidine 4 mg PO Q8H PRN 30 days trazodone 150 mg PO BEDTIME trazodone 100 mg PO BEDTIME Tobacco use date assessed: 06/30/24 Dental Screening Dental Screen Date: 06/30/24 Did you have a dental visit in the last 12 months?: Yes Did you have a dental problem in the last 6 months where you did not have access to dental care?: No Was dental information given to patient?: Patient has dentist HPI [facility] 06/23 seizures HPI Details Patient comes in today for his follow up visit He was admitted to [facility] overnight last week after he was brought to the emergency department for breakthrough seizures, which his mother states he has had several episodes lately He had a head CT done at the ER which did not show any acute intracranial pathology Neurology consult was requested and they recommended to increase his Keppra to 1750 mg BID and to continue on all his other current medications and follow-up with Neurology on an outpatient basis They also recommended outpatient psychiatry follow-up for increased OCD symptoms and restless behavior and his mother states that patient has a psychiatry follow-up scheduled in 1 month Patient currently feels okay his mother states that he has not had any further seizures in the past few days Patient denies any headaches or dizziness Denies any chest pains, no increased shortness of breath No nausea/vomiting, no abdominal pain No change in bowel habits noted Needs his Acetaminophen Rx refilled PFSH Medical History Cervical dystonia Obesity (BMI 30-39.9) Obsessive compulsive disorder Autism Vitamin D deficiency Pure hypercholesterolemia Epilepsy Surgical History History of elbow surgery History of excision of mass Family History Mother Medical history unknown Social History Housing: Apartment Alcohol intake: never Patient Tobacco Use Status: Never used Tobacco e-Cigarette/Vaping Use: Never Used Second Hand Smoke Exposure: No service: No Current occupational status: disabled Cognitive needs: Yes Hearing needs: No Vision needs: No Questionnaire PHQ-9 Over the last 2 weeks, how often have you been bothered by any of the following problems? 1. Little interest or pleasure in doing things: not at all 2. Feeling down, depressed, or hopeless: not at all 3. Trouble falling or staying asleep, or sleeping too much: not at all 4. Feeling tired or having little energy: not at all 5. Poor appetite or overeating: not at all 6. Feeling bad about yourself - or that you are a failure or have let yourself or your family down: not at all 7. Trouble concentrating on things, such as reading the newspaper or watching television: not at all 8. Moving or speaking so slowly that other people could have noticed. Or the opposite - being so fidgety or restless that you have been moving around a lot more than usual: not at all 9. Thoughts that you would be better off or of hurting yourself in some way: not at all Total score: 0 Depression Screening Interpretation: Negative Depression Screening Done: Yes 15884 - PHQ-9 Billing: Yes Source: Developed by Drs. William Romero, Gi Jarrell, Praneeth Baez and colleagues, with an educational donta from [employer] Thrive Questionnaire Date Thrive assessed: 04/14/24 Currently or been in a relationship where the following occur: No concerns reported THRIVE Score: 0 DANII-7 AMB Questionnaire DANII-7 Date DANII - 7 assessed: 04/14/24 Source: Developed by Drs. iWlliam Romero, Gi Jarrell, Praneeth Baez and colleagues, with an educational donta from [employer] Review of Systems Const Details: Information/ROS is obtained mostly through patient's mother as patient is unable to provide info due to his mental and intellectual disabilities Denies fatigue, Denies fever(s) and Denies headache(s) ENT Denies dysphagia, Denies dizziness, Denies otalgia, Denies headache(s), Reports neck pain (due to cervical dystonia but symptoms are well-controlled on Botox inj.), Denies odynophagia and Denies sore throat Card Denies chest pain, Denies palpitations and Denies dyspnea Resp Denies chest congestion, Denies cough and Denies dyspnea GI Denies abdominal pain, Denies constipation, Denies dysphagia, Denies heartburn, Denies diarrhea, Denies nausea, Denies odynophagia and Denies vomiting Details: wets bed accidentally at night at times Denies dysuria, Denies urinary frequency and Reports urinary incontinence (at times, mostly at night) Musc Denies back pain, Denies arthralgias and Reports neck pain (due to cervical dystonia but symptoms are well-controlled on Botox inj.) Skin/Breast Denies rash Neuro Denies dizziness, Denies headache(s) and Reports convulsions (increased lately but no seizures in the past week) Endo Denies fatigue and Denies palpitations Physical exam (Primary Care) Vital Signs: Last Vital Signs Pulse 88 06/30/24 13:16 BP 124/80 06/30/24 13:16 Pulse Ox 98 06/30/24 13:16 Oxygen Delivery Method Room Air 06/30/24 13:16 BMI result Body Mass Index 31.5 Tobacco/Smoking Status: Tobacco use Status Tobacco use date assessed 06/30/24 06/30/24 13:26 Patient Tobacco Use Status Never used Tobacco 06/30/24 13:17 e-Cigarette/Vaping Use Never Used 06/30/24 13:17 PHQ-9: PHQ-9 Score PHQ-9: Total score 0 06/30/24 13:52 Depression Screening Interpretation: Negative Thrive Assessment: Date of Thrive Assessment Date Thrive assessed 04/14/24 06/30/24 13:17 Currently or been in a relationship where the following occur: No concerns reported Const General: no acute distress and alert Orientation/consciousness: Other orientation findings (unable to assess orientation due to mental disability) Limitations: behavioral limitations (is autistic) HENMT Throat: Yes posterior oropharynx normal and Yes tonsils normal (no TP congestion) Neck Neck: Yes no lymphadenopathy and Yes supple Thyroid: Thyroid normal Resp Auscultation: clear to auscultation bilaterally, no rales and no wheezes Cardio Rate: regular rate Rhythm: regular rhythm Heart sounds: no murmurs GI Palpation (GI): Soft to palpation and nontender Auscultation: normal bowel sounds General: Yes no CVA tenderness Back/Spine/Pelvis Back: no CVA tenderness Thoracic/Lumbar Spine: thoracic and lumbar spine normal to inspection Skin Rashes: no rashes Neuro Other: neuro exam limited due to patient's disabilities and his inability to fully comply with exam General: moves all extremities and no focal motor deficits Gait exam (Neuro): Normal gait present Extrem General: Yes no clubbing, cyanosis or edema Coding Level of Care Code Est Pt Level 4 (84495) Diagnoses Nonintractable epilepsy without status epilepticus, unspecified epilepsy type G40.909 Epilepsy type: unspecified Intractability: not intractable Status epilepticus: without status epilepticus Cervical dystonia G24.3 Opacity of lung on imaging study R91.8 Autism F84.0 Obsessive-compulsive disorder, unspecified type F42.9 Obsessive-compulsive disorder type: unspecified Additional Codes PHQ-9 - 80974 - PHQ-9 Billing: Yes ([id number]) Assessment & Plan Assessment & Plan (1) Epilepsy: Code(s): G40.909 - Epilepsy, unspecified, not intractable, without status epilepticus Category: Medical Qualifiers: Epilepsy type: unspecified Intractability: not intractable Status epilepticus: without status epilepticus Qualified Code(s): G40.909 - Epilepsy, unspecified, not intractable, without status epilepticus Plan: Patient recently had breakthrough seizures last week and was brought to the ER - head CT done at the ER came out negative His Levetiracetam was increased to 1750 mg BID (per neurology recommendations) Continue Carbamazepine ER 500 mg BID (100 mg caps - 5 caps BID) Follow up with neurology as scheduled (2) Cervical dystonia: Code(s): G24.3 - Spasmodic torticollis Category: Medical Plan: Patient is still getting Botox injections into both sides of the neck regularly every 3 months from Neurology He was tried on Nurtec ODT, which patient's mother states did not help much He was also started on Sinemet 25-100 mg previously to take PRN but no more than 2 tablets in 24 hours last year but these have been discontinued since Follow up with neurology as scheduled (3) Opacity of lung on imaging study: Code(s): R91.8 - Other nonspecific abnormal finding of lung field Category: Medical Plan: Chest x-rays done at the ER last week revealed (+) possible left lower lobe opacity and he was recommended to have a repeat chest x-ray done in 2-4 weeks with his PCP for follow-up on this Will go ahead and send him for repeat chest x-rays next week for follow up (4) Autism: Code(s): F84.0 - Autistic disorder Category: Medical Plan: Continue Clonidine 0.1 mg twice a day in AM and at 4 pm and Clonidine 0.2 mg daily at bedtime for now He was recommended by neurology to follow up with his psychiatrist regarding some increased OCD symptoms and restless behavior noted when he was admitted to [facility] last week despite his current Rx His mother states that patient has a follow up appointment scheduled with his psychiatrist in about a month (5) Obsessive compulsive disorder: Code(s): F42.9 - Obsessive-compulsive disorder, unspecified Category: Medical Qualifiers: Obsessive-compulsive disorder type: unspecified Qualified Code(s): F42.9 - Obsessive-compulsive disorder, unspecified Plan: Continue Benztropine Mesylate 1 mg BID, Risperdal 3 mg at 8 am and 2.5 mg at 4 pm (is slowly being weaned down by psychiatry), Gabapentin 600 mg + 400 mg (total of 1000 mg) BID and Trazodone 150 mg + 100 mg (total of 250 mg) Q HS Follow up with psychiatry as scheduled Plan To return as scheduled in October 2024 for his annual physical examination Orders: Orders XR chest 2V 07/06/24 R91.8 - Other nonspecific abnormal finding of lung field Medications: New [DISPOSABLE WIPES] As directed 100 ea 12RF G40.909 - Epilepsy, unspecified, not intractable, without status epilepticus, R32 - Unspecified urinary incontinence [DISPOSABLE WIPES] As directed 100 ea 12RF G40.909 - Epilepsy, unspecified, not intractable, without status epilepticus, R32 - Unspecified urinary incontinence Refilled acetaminophen 650 mg (2 x 325 mg) PO Q4-6H 30 days PRN 240 tabs 5RF headaches or pain
== END 2024-06-30 14:06 | disposition home or self-care (01) ==
PROVIDERS: PCP Internal Medicine; Visit Provider Internal Medicine
DX: G40.909 Epilepsy, unspecified, not intractable, without status epilepticus (principal); G24.3 Spasmodic torticollis; R91.8 Other nonspecific abnormal finding of lung field; F84.0 Autistic disorder; F42.9 Obsessive-compulsive disorder, unspecified

== ENCOUNTER → 2024-06-30 13:14 | Outpatient (BNVA) | payer MEDICARE, MEDICAID, SELFPAY | PROVIDERS: PCP Internal Medicine; Visit Provider Internal Medicine | DX: G40.909 Epilepsy, unspecified, not intractable, without status epilepticus (principal); G24.3 Spasmodic torticollis; R91.8 Other nonspecific abnormal finding of lung field; F84.0 Autistic disorder; F42.9 Obsessive-compulsive disorder, unspecified | CPT/HCPCS: 96127; 99212 ==

== ENCOUNTER 2024-07-07 14:23 | Outpatient (REF) | payer MEDICARE, MEDICAID, SELFPAY ==
--- NOTE | ~2024-07-07 | XR_ITS ---
EXAMINATION: XR CHEST CLINICAL INFORMATION: R91.8 - Other nonspecific abnormal finding of lung field. COMPARISON: None available. TECHNIQUE: 2 views of the chest were obtained. FINDINGS: There is no gross pneumothorax. Lung volumes are low. There is a large mass-like opacity in the upper right mediastinal/thoracic inlet region to the left, possibly related to enlarged thyroid versus other mass. Lung volumes are low. There is no gross pneumothorax. Mild bibasilar streaky opacities. No significant pleural effusion. Mild dextroscoliosis of the thoracolumbar spine. XR/XR chest 2V IMPRESSION: Large mass-like opacity in the upper right mediastinal/thoracic inlet region to the left, possibly related to enlarged thyroid versus other mass. Dedicated thyroid ultrasound or CT scan of the chest /neck recommended for further evaluation. This study was presented today, July 08, 2024, for interpretation. Stat results provided at this time as requested by referring provider. Electronically signed by: Flora Evans MD 07/08/2024 09:13 AM EMERSON GUTIERREZ
== END 2024-07-07 14:24 | disposition home or self-care (01) ==
LOC: HO.XRAY 14:23
PROVIDERS: PCP Internal Medicine; Visit Provider Internal Medicine
DX: R91.8 Other nonspecific abnormal finding of lung field (principal)
CPT/HCPCS: 71046

== ENCOUNTER 2024-09-04 16:28 | Outpatient (AMB) | payer MEDICARE, MEDICAID, SELFPAY ==
--- NOTE | 2024-09-04 16:30 | MHC.PC.OV ---
Vital Signs 09/04/24 16:32 Height 6 ft 4 in Weight 263 lb 2 oz BMI 32.0 BP 130/72 Blood Pressure Location Lt brachial Position Sitting Pulse 92 Pulse Source Pulse Oximeter Temp 97.1 F Temp Source Skin Pulse Oximetry (%) 98 Oxygen Delivery Method Room Air Intake Visit Reasons: Sore throat Intake Note: Patient is here to follow up on Sore Throat. Guest Services Coordinator Required: No Continuous Improvement Coordinator: Present Accompanied by: staff Allergies No Known Allergies [No Known Allergies*] Allergy (Verified 09/04/24 17:39) Medication List - Last Reconciled 09/04/24 by Jessica Fam PA-C acetaminophen 650 mg (2 x 325 mg) PO Q4-6H PRN 30 days [ADULT BRIEFS (2XL) As directed] ammonium lactate 12% 1 appl topical BID PRN 30 days amoxicillin-pot clavulanate 875-125 mg 1 tab PO BID 10 days atorvastatin 20 mg PO DAILY benztropine 1 mg PO BID carbamazepine ER 500 mg (5 x 100 mg) PO BID 30 days cholecalciferol (vitamin D3) (Vitamin D3) 50 mcg PO DAILY clonidine HCl 0.1 mg PO BID 90 days clonidine HCl 0.2 mg PO BEDTIME 90 days cyclobenzaprine 10 mg PO TID PRN [DISPOSABLE WIPES As directed] gabapentin 600 mg PO BID 30 days gabapentin 400 mg PO TID levetiracetam 750 mg PO BID 30 days levetiracetam 1,000 mg PO BID lidocaine HCl 2% (Lidocaine Viscous) 5 mL mucous membrane BID PRN lorazepam 1 mg PO BID onabotulinumtoxinA units IM [id number] risperidone 3 mg PO QAM risperidone 2 mg PO QPM risperidone 0.5 mg PO QPM trazodone 150 mg PO BEDTIME trazodone 100 mg PO BEDTIME Tobacco use date assessed: 09/04/24 Dental Screening Dental Screen Date: 09/04/24 Did you have a dental visit in the last 12 months?: Yes Did you have a dental problem in the last 6 months where you did not have access to dental care?: No Was dental information given to patient?: Patient has dentist [facility] Medical History Cervical dystonia Obesity (BMI 30-39.9) Obsessive compulsive disorder Autism Vitamin D deficiency Pure hypercholesterolemia Epilepsy Surgical History History of elbow surgery History of excision of mass Family History Mother Medical history unknown Social History Housing: Apartment Alcohol intake: never Patient Tobacco Use Status: Never used Tobacco e-Cigarette/Vaping Use: Never Used Second Hand Smoke Exposure: No service: No Current occupational status: disabled Cognitive needs: Yes Hearing needs: No Vision needs: No Questionnaire PHQ-9 Over the last 2 weeks, how often have you been bothered by any of the following problems? 1. Little interest or pleasure in doing things: not at all 2. Feeling down, depressed, or hopeless: not at all 3. Trouble falling or staying asleep, or sleeping too much: not at all 4. Feeling tired or having little energy: not at all 5. Poor appetite or overeating: not at all 6. Feeling bad about yourself - or that you are a failure or have let yourself or your family down: not at all 7. Trouble concentrating on things, such as reading the newspaper or watching television: not at all 8. Moving or speaking so slowly that other people could have noticed. Or the opposite - being so fidgety or restless that you have been moving around a lot more than usual: not at all 9. Thoughts that you would be better off or of hurting yourself in some way: not at all Total score: 0 Depression Screening Interpretation: Negative Depression Screening Done: Yes Source: Developed by Drs. William Romero, Gi Jarrell, Praneeth Baez and colleagues, with an educational donta from [employer]. Thrive Questionnaire Date Thrive assessed: 09/04/24 I am a: Patient What is your living situation today?: I have a steady place to live Within the past 12 months, did the food you bought not last and you didn't have the money to get more?: Never true Within the past 12 months, did you worry whether your food would run out before you got money to buy more?: Never true Do you have trouble paying for medicines?: No Do you have trouble getting transportation to medical appointments?: No Do you have trouble paying your heating and electricity bill?: No Do you have trouble taking care of your child, family member or friend?: No Do you have trouble with day-to-day activities such as bathing, preparing meals, shopping, managing finances, etc.?: No Are you currently unemployed and looking for a job?: No Are you interested in more education?: No Please select the resources that you would like help with: None Currently or been in a relationship where the following occur: No concerns reported THRIVE Score: 0 AUDIT C Alcohol Use Questionnaire (AUDIT-C) 1. How often do you have a drink containing alcohol?: Never Total Score: 0 DANII-7 AMB Questionnaire DANII-7 Date DANII - 7 assessed: 09/04/24 Feeling nervous, anxious, or on edge: 0 = Not at all Not being able to stop or control worryin = Not at all Worrying too much about different things: 0 = Not at all Trouble relaxin = Not at all Being so restless that it is hard to sit still: 0 = Not at all Becoming easily annoyed or irritable: 0 = Not at all Feeling afraid as if something awful might happen: 0 = Not at all Total DANII-7 score (0-4 normal; 5-9 mild; 10-14 moderate; 15-21 severe): 0 Source: Developed by Drs. William Romero, Gi Jarrell, Praneeth Baez and colleagues, with an educational donta from [employer]. Physical exam (Primary Care) Vital Signs: Last Vital Signs Temp 97.1 F 09/04/24 16:32 Pulse 92 09/04/24 16:32 BP 130/72 09/04/24 16:32 Pulse Ox 98 09/04/24 16:32 Oxygen Delivery Method Room Air 09/04/24 16:32 Care Plan Goal for BP management: <130/80 at goal BMI result Body Mass Index 32.0 BMI Assessment/Plan discussion: High BMI High, discussed plan: lifestyle, weight reduction, dietary, physical activity and alcohol moderation Tobacco/Smoking Status: Tobacco use Status Tobacco use date assessed 09/04/24 09/04/24 16:36 Patient Tobacco Use Status Never used Tobacco 09/04/24 16:36 e-Cigarette/Vaping Use Never Used 09/04/24 16:36 PHQ-9: PHQ-9 Score PHQ-9: Total score 0 09/04/24 16:36 Depression Screening Interpretation: Negative Thrive Assessment: Date of Thrive Assessment Date Thrive assessed 09/04/24 09/04/24 16:36 Currently or been in a relationship where the following occur: No concerns reported Coding Level of Care Code Est Pt Level 4 (67547) Complex EM visit Add On G2211 Diagnoses Pharyngitis J02.9 Neck pain M54.2 Assessment & Plan Assessment & Plan (1) Pharyngitis: Code(s): J02.9 - Acute pharyngitis, unspecified Category: Medical Plan: Patient will be started on Augmentin, viscous lidocaine with instructions to follow-up with neurologist for Botox injections. Condition is chronic and stable continue to monitor. (2) Neck pain: Code(s): M54.2 - Cervicalgia Category: Medical Plan: Patient will be started on muscle relaxers and to follow-up with neurologist for Botox injections. Condition is chronic and stable continue to monitor. Plan Plan - Initiate Augmentin for ten days to address throat discomfort potentially due to bacterial infection. - Prescribe a muscle relaxer to address muscle spasms. - Administer viscous lidocaine for symptomatic relief of throat discomfort. - Discuss the need to reschedule the botulinum toxin injections with a neurology provider. - Continue current seizure management and discuss with the neurology provider if necessary adjustments are warranted. - Encourage the patient?s guardian to facilitate contact with neurology to ensure timely administration of the botulinum toxin injection. Medications: New amoxicillin-pot clavulanate 875-125 mg 1 tab PO BID 20 tabs 0RF 10 days cyclobenzaprine 10 mg PO TID PRN 30 tabs 0RF muscle spasm lidocaine HCl 2% (Lidocaine Viscous) 5 mL mucous membrane BID PRN 100 mL 1RF pain Discontinued tizanidine Discontinued Reason: Duplicate 4 mg PO Q8H PRN 90 tabs 0RF muscle spasms 30 days Patient Instructions: Patient Instructions - Take Augmentin twice daily for 10 days. - Use the muscle relaxer as prescribed. - Use viscous lidocaine for throat discomfort as directed. - Re-establish contact with the neurologist for scheduling botulinum toxin injections. - Monitor for any new symptoms or lack of improvement and contact us via the patient portal if needed. - Continue current seizure medications and report any changes in seizure activity. Scribe Plan - Not visible on output: History of Present Illness The patient is a 39-year-old male presenting with throat discomfort and a need for his scheduled botulinum toxin injection. He has experienced notable throat discomfort and has been straining while eating. This discomfort appears to have been exacerbated following a day of high vocal activity where the patient was shouting extensively. The patient?s throat pain has been preventing him from eating normally, as he attempts to adjust food down his throat due to discomfort, suggesting possible issues with swallowing. There has been no report of fever, cough, diarrhea, or vomiting that could indicate an infectious process; however, the patient has not received his regular botulinum toxin injections due to his departure from the prior neurology provider's location. His regular injection schedule was meant for July, but due to transition issues, it was missed. This lapse seems to correlate with increased muscle spasm symptoms and associated movement issues, suggesting that the missing injections may be contributing to the current condition. The patient denies any fever and has not had any coughing or significant respiratory symptoms. He has a history of seizure disorder, managed previously with medication, and is on various nighttime medications, including Trazodone. Social History - No specific details on social determinants of health discussed in this visit. Review of Systems - Neurological: Reports tiredness. - Respiratory: Denies cough. - Gastrointestinal: Denies diarrhea and vomiting. Physical Exam Appearance: Alert. Oriented. No acute distress. Head: Normal external exam. Normocephalic. Atraumatic. Eyes: Pupils are equal, round, and reactive to light. Extraocular movements intact. Conjunctiva and sclera normal. Eyelids normal. Ears: External auditory canal normal. Tympanic membranes normal. Throat: Pharynx normal. Uvula midline. Moist mucous membranes. Throat discomfort noted, likely due to recent screaming. Neck: Normal inspection. Neck supple. Full range of motion. No adenopathy. Thyroid Normal. No meningeal signs. No neck mass noted. Cardiovascular: Normal heart rate and rhythm. Heart sound normal. No murmurs noted. Pulses normal throughout. Respiratory: No respiratory distress. Painless inspiration. Breath sounds normal. No wheezes/rales/rhonchi noted. Chest nontender. No accessory muscle usage noted or decreased air movement noted. Lungs are clear. Back: Full range of motion noted. Skin: Skin warm and dry. Normal skin color. Normal skin turgor. No rashes/lesions/lacerations noted. Extremities: Extremities exhibit normal range of motion. Extremities nontender. Neuro: Oriented. No motor deficit. No sensory deficit. Reflexes normal. Plan - Initiate Augmentin for ten days to address throat discomfort potentially due to bacterial infection. - Prescribe a muscle relaxer to address muscle spasms. - Administer viscous lidocaine for symptomatic relief of throat discomfort. - Discuss the need to reschedule the botulinum toxin injections with a neurology provider. - Continue current seizure management and discuss with the neurology provider if necessary adjustments are warranted. - Encourage the patient?s guardian to facilitate contact with neurology to ensure timely administration of the botulinum toxin injection. Patient was informed and verbally consented to the use of an ambient scribe for clinic note documentation during this visit. Discussion Notes During the visit, I explained to the patient and his guardian the likely contributors to his throat discomfort and dysphagia, emphasizing the importance of staying on schedule with his botulinum toxin injections for muscle spasm control. I discussed the treatment plan, including prescribing Augmentin to address a potential bacterial cause for the throat discomfort and a muscle relaxer for increased spasms. We reviewed the administration of viscous lidocaine to alleviate throat discomfort temporarily. I highlighted the importance of ensuring that future botulinum toxin injections are administered promptly and suggested using available resources to re-establish contact with a provider at the neurology department. I advised them to watch for any adverse reactions or lack of improvement and to reach out using the patient portal for any follow-up or questions. Patient Instructions - Take Augmentin twice daily for 10 days. - Use the muscle relaxer as prescribed. - Use viscous lidocaine for throat discomfort as directed. - Re-establish contact with the neurologist for scheduling botulinum toxin injections. - Monitor for any new symptoms or lack of improvement and contact us via the patient portal if needed. - Continue current seizure medications and report any changes in seizure activity.
[2024-09-04 16:32] VITALS: BP 130/72; PULSE 92; TEMP 36.2; O2SAT 98; BMI 32.0
--- OUTSIDE RECORDS SUMMARY | 2024-09-04 19:38 | XMS_ITS | Continuity of Care Document ---
Author Organization [facility] Address [address] [facility], [address], [address] [place] [id number]- Care Team Providers Care Diamond Sizer Name Role Phone Low Isaac MD Primary Care Physician [phone] [id number] Date(s): 07/18/24 - 08/17/24 [facility] [address] [facility] [address]rd Floor, [address] [place] [id number]- Encounter Type: Triage Allergies, Adverse Reactions, Alerts No Known Allergies Medications ammonium lactate 12% topical cream 1 application, Topically, 2 times a day, PRN Dry Skin, # 140 Gm, 0 Refills, Maintenance, 04/01/18 10:10:23 AM EDT, Cream Start Date: 04/01/18 Status: Ordered Quantity: 140.0 Unit: g Repeat number: 1 atorvastatin 20 mg oral tablet 1 tablet = 20 mg, By Mouth, Daily at bedtime, # 30 tablet, 0 Refills, Maintenance, 10/26/20 9:35:00 AM EDT, Tablet, Partial fill upon patient request if the prescription is for a schedule II opioid drug. Start Date: 10/26/20 Status: Ordered Quantity: 30.0 Unit: tablet Repeat number: 1 benztropine 1 mg oral tablet 1 mg, 1, tablet, By Mouth, 2 times a day, # 60 tablet, Refills 0, Maintenance, 05/09/16 9:23:25 PM EDT Start Date: 05/09/16 Status: Ordered Quantity: 60.0 Unit: tablet Repeat number: 1 carBAMazepine 100 mg oral tablet, extended release 1, tablet, By Mouth, 2 times a day, GIVE WITH CARBAMAZEPINE. FOR TOTAL OF 500MG*., # 56 tablet, Refills 0, Maintenance, 05/27/24 2:28:00 PM EDT, Route to Pharmacy Electronically, [facility], 193, cm, 04/28/24 8:56:00 EDT, Height, 120.2, kg, 04/22/24 8:54:00 EDT, Dry Weight Start Date: 05/27/24 Status: Ordered Quantity: 56.0 Unit: tablet Repeat number: 1 carBAMazepine 400 mg oral tablet, extended release 400 mg, 1, tablet, By Mouth, 2 times a day, take w/ 100mg tablet [id number] BID, Refills 0, Maintenance, 06/23/24 8:24:00 AM EST, Partial fill upon patient request if the prescription is for a schedule II opioid drug. Start Date: 06/23/24 Status: Ordered Repeat number: 1 cloNIDine 0.1 mg oral tablet 0.1 mg, 1, tablet, By Mouth, 2 times a day, every morning and 4pm, # 60 tablet, Refills 0, Maintenance, 05/09/16 9:26:51 PM EDT Start Date: 05/09/16 Status: Ordered Quantity: 60.0 Unit: tablet Repeat number: 1 cloNIDine 0.2 mg oral tablet 0.2 mg, 1, tablet, By Mouth, Daily at bedtime, Refills 0, Maintenance, 04/01/18 10:07:38 AM EDT Start Date: 04/01/18 Status: Ordered Repeat number: 1 diazepam 10 mg oral tablet 10 mg, 1, tablet, By Mouth, Daily, PRN, # 12 tablet, Refills 2, Tot. Refills 2, Acute 01/24/25 6:29:00 AM EDT, Seizure Activity, 01/23/25 1:01:00 PM EDT, Route to Pharmacy Electronically, [facility], Partial fill upon patient request if the prescription is for a schedule II opioid drug., 193, cm, 11/01/23 10:59:00 EDT, Height, 113.6, kg, 12/18/22 18:02:00 EDT, Dry Weight Start Date: 01/23/25 Stop Date: 01/24/25 Status: Ordered Quantity: 12.0 Unit: tablet Repeat number: 3 gabapentin 400 mg oral capsule 400 mg, 1, capsule, By Mouth, 2 times a day, take w/ 600mg bid [id number],, Refills 0, Maintenance,06/23/24 8:26:00 AM EST, Partial fill upon patient request if the prescription is for a schedule IIopioid drug. Start Date: 06/23/24 Status: Ordered Repeat number: 1 gabapentin 400 mg oral capsule 400 mg, 1, capsule, By Mouth, Daily before lunch, Refills 0, Maintenance, 06/23/24 8:27:00 AM EST, Partial fill upon patient request if the prescription is for a schedule II opioid drug. Start Date: 06/23/24 Status: Ordered Repeat number: 1 gabapentin 600 mg oral tablet 1 tablet, By Mouth, 2 times a day, *GIVE WITH GABAPENTIN 400MG FOR TOTAL DOSE OF 1 GRAM TWICE DAILY*, # 56 tablet, 6 Refills, Maintenance, 05/06/24 3:40:00 PM EDT, [facility], 193, cm, 04/28/24 8:56:00 EDT, Height, 120.2, kg, 04/22/24 8:54:00 EDT, Dry Weight Start Date: 05/06/24 Status: Ordered Quantity: 56.0 Unit: tablet Repeat number: 1 Keppra 750 mg oral tablet 1 tablet = 750 mg, By Mouth, 2 times a day, take with Levetiracetam 1000mg BID TDD = 1750mg, # 180 tablet, 3 Refills, Maintenance, 07/23/24 3:29:00 PM EST, Tablet, [facility], Discontinue 500mg BID, 193, cm, 06/23/24 16:07:00 EST, Height, 117.7, kg, 06/23/24 16:07:00 EST, Dry Weight Start Date: 07/23/24 Stop Date: 08/22/24 Status: Ordered Quantity: 180.0 Unit: tablet Repeat number: 4 levETIRAcetam 1000 mg oral tablet 1 tablet = 1,000 mg, By Mouth, 2 times a day, taqke w/ 500mg BID [id number], 0 Refills, Maintenance, 06/23/24 8:29:00 AM EST, Partial fill upon patient request if the prescription is for a schedule II opioid drug. Start Date: 06/23/24 Status: Ordered Repeat number: 1 LORazepam 1 mg oral tablet 1 tablet = 1 mg, By Mouth, 2 times a day, PRN as needed for anxiety, 0 Refills, Maintenance, 06/23/24 8:36:00 AM EST, Partial fill upon patient request if the prescription is for a schedule II opioiddrug. Start Date: 06/23/24 Status: Ordered Repeat number: 1 onabotulinumtoxinA 100 units injection See Instructions, 100 unit vial to be injected by neurologist, # 1 Unknown, 3 Refills, Maintenance,11/09/22 12:45:00 PM EDT, [facility], Partial fill upon patient request if the prescription is for a schedule II opioid drug., 193.04, cm, 08/11/22 8:02:00 EST, Height Start Date: 11/09/22 Status: Ordered Quantity: 1.0 Unit: Unknown Repeat number: 4 RisperDAL 3 mg oral tablet 3 mg, 1, tablet, By Mouth, 2 times a day, 8am & 4pm, # 30 tablet, Refills 0, Maintenance, 12/28/15 12:06:36 PM EDT Start Date: 12/28/15 Status: Ordered Quantity: 30.0 Unit: tablet Repeat number: 1 risperiDONE 0.25 mg oral tablet 0.5 mg, 2, tablet, By Mouth, Daily at bedtime, Refills 0, Maintenance, 06/23/24 8:38:00 AM EST, Partial fill upon patient request if the prescription is for a schedule II opioid drug. Start Date: 06/23/24 Status: Ordered Repeat number: 1 risperiDONE 2 mg oral tablet 2 mg, 1, tablet, By Mouth, 2 times a day, Refills 0, Maintenance, 06/23/24 8:30:00 AM EST, Partial fill upon patient request if the prescription is for a schedule II opioid drug. Start Date: 06/23/24 Status: Ordered Repeat number: 1 risperiDONE 2 mg oral tablet 2 mg, 1, tablet, By Mouth, 2 times a day, take at 4pm and w/ 0.25mg(0.5mg) at bedtime TDD=2.5mg, Refills 0, Maintenance, 06/23/24 8:38:00 AM EST, Partial fill upon patient request if the prescriptionis for a schedule II opioid drug. Start Date: 06/23/24 Status: Ordered Repeat number: 1 traZODone 100 mg oral tablet 100 mg, 1, tablet, By Mouth, Daily at bedtime, take w/ 150mg TDD= 250 mg, Refills 0, Maintenance, 06/23/24 8:36:00 AM EST, Partial fill upon patient request if the prescription is for a schedule II opioid drug. Start Date: 06/23/24 Status: Ordered Repeat number: 1 traZODone 150 mg oral tablet 1 tablet = 150 mg, By Mouth, Daily at bedtime, take w/ 100mg TDD= 250mg, 0 Refills, Maintenance, 06/23/24 8:37:00 AM EST, Partial fill upon patient request if the prescription is for a schedule II opioid drug. Start Date: 06/23/24 Status: Ordered Repeat number: 1 Vitamin D2 2000 intl units oral capsule 1 capsule = 2,000 International_Units, By Mouth, Daily, with food, # 60 capsule, 0 Refills, Maintenance, 10/26/20 10:08:00 AM EDT, Capsule, Partial fill upon patient request if the prescription is fora schedule II opioid drug. Start Date: 10/26/20 Status: Ordered Quantity: 60.0 Unit: capsule Repeat number: 1 Problem List Condition Confirmation Course Effective Dates Status Health St atus Informant Obese class I Confirmed Active Autistic spectrum disorder Confirmed Active Seizure disorder Confirmed Active Social History Social History Type Response Smoking Status Never (less than 100 in lifetime) entered on: 02/09/23 Sex Sex Representation Male (finding) Patient Care team information Care Team Personnel Name: Low Isaac MD Position: Reference Physician Member Role: PCP Address: [address] [place] [address] Telecom: Care Team Related Persons Name: MARCIE WEN Name: KAREL TAFOYA Insurance Providers Guarantor name: KRISHNA Health Plan Information #: 1 Payer: MEDICARE PART B OUTPT Member Number: NA Policy Number: NA Group Number: NA Health Plan Information #: 2 [facility] Member Number: NA Policy Number: NA Group Number: NA
--- OUTSIDE RECORDS SUMMARY | 2024-09-04 19:38 | XMS_ITS | Continuity of Care Document ---
Author Organization [facility] Address [address] [facility], [address] Floor, [address] [place] [id number] Care Team Providers Care Thermodynamics Professor Name Role Phone Low Isaac MD Primary Care Physician [id number]): 04[facility]29[facility] - 08/27/24 [facility] [address] [facility] [address]rd Floor, [address] [place] [phone]- Attending Physician: Marielle Jaeger NP Admitting Physician: Marielle Jaeger NP Referring Physician: Low Isaac MD Encounter Type: Pre-OutPatient One Time Allergies, Adverse Reactions, Alerts No Known Allergies [...] PM EDT, Route to Pharmacy Electronically, [facility], 193, cm, 04/28/24 8:56:00 EDT, Height, 120.2, kg, 04/22/24 8:54:00 EDT, Dry Weight Start Date: 05/27/24 Status: Ordered Quantity: 56.0 Unit: tablet Repeat number: 1 carBAMazepine 400 mg oral tablet, extended release 400 mg, 1, tablet, By Mouth, 2 times a day, take w/ 100mg tablet [id number] BID, Refills 0, Maintenance, 06/23/24 8:24:00 AM [...] times a day, take w/ 600mg bid [id number],, Refills 0, Maintenance,06/23/24 8:26:00 AM EST, Partial [...] times a day, taqke w/ 500mg BID [id number], 0 Refills, Maintenance, 06/23/24 8:29:00 AM EST, [...] Unknown, 3 Refills, Maintenance,11/09/22 12:45:00 PM EDT, [facility], Partial fill upon patient request [...] Position: Reference Physician Member Role: PCP Address: [address] [place] [address] Telecom: Care Team Related Persons Name: MARCIE WEN Name: KAREL TAFOYA Insurance Providers Guarantor name: KRISHNA Health Plan Information #: 2 [facility] Member Number: [id number] Policy Number: NA Group Number: NA Health Plan Information #: 1 Payer: MEDICARE PART B OUTPT Member Number: [id number] Policy Number: KRISHNA Group Number: NA
--- OUTSIDE RECORDS SUMMARY | 2024-09-04 19:38 | XMS_ITS | Clinical Summary ---
Author Organization [facility] Address [address] [place] [address] Care Team Providers Care Dtp Operator Name Role Phone Unavailable Primary Care Provider Unavailabl e Source Comments PLEASE NOTE, if this patient is a minor, it may be UNLAWFUL to discuss sensitive information that is contained in these records (such as FAMILY PLANNING, MENTAL HEALTH or SUBSTANCE ABUSE) with the minor patient's parent or other person without the patient's specific authorization.[facility] Immunizations Name Administration Dates Next Due PFIZER COVID VACCINE, PURPLE CAP, 12+ 01/04/2021 ,12/13/2020 Social History Tobacco Use Types Packs/Day Years Used Date Smoking Tobacco: Never Assessed Social Connections Answer Date Recorded Social Connections and Isolation 0 12/13/2020 Financial Resource Strain Answer Date R ecorded Financial Resource Strain 0 2020 Stress Answer Date Recorded Stress 0 12/13/2020 Physical Activity Answer Date Recorded Physical Activity 0 12/13/2020 Food Insecurity Answer Date Recorded Food 0 12/13/2020 Transportation Needs Answer Date Record ed Transportation 0 12/13/2020 Housing Stability Answer Date Recorded Housing 0 12/13/2020 Safety and Environment Answer Date Norberto rded Safety 0 12/13/2020 Utilities Answer Date Recorded Utilities 0 12/13/2020 Employment Answer Date Recorded Employment 0 12/13/2020 Sex and Gender Information Value Date Recorded Sex Assigned at Not on file Legal Sex Male 10:28 AM PDT Gender Identity Not on file Sexual Orientation Not on file Plan of Treatment Health Maintenance Due Date Last Done Comments Diabetes Screening 1986 Hepatitis C Screening 1986 Tobacco Screening 1986 HIV Screening 2001 Hypertension Screening (#1) 2004 Medicare Annual Wellness Visit 2004 Imm-Hepatitis B (1 of 3 - 19 + 3-dose series) 2005 Yhd-EXUAS-78 ( season) 04/06/20242 021, 12/13/2020 Imm-Influenza (#1) 2024 04/22/2018, 1 , 05/11/2016, Additional history exists Alcohol and Drug Screen 08/06/2024 Depression Annual Screen 08/06/2024 Imm-DTaP/Tdap/Td (2 - Td or Tdap) 05/31/2026 016 [place]
--- OUTSIDE RECORDS SUMMARY | 2024-09-04 19:39 | XMS_ITS | Continuity of Care Document ---
Author Organization [facility] Address [address] [facility], [address] d Floor, [address] [place] [id number]- Care Team Providers Care Kapok Machine Operator Name Role Phone Low Isaac MD [id number]s): 07/18/24 - 08/17/24 [facility] [address] [facility] [address] Floor, [address] [place] [address]- Encounter Type: Triage Allergies, Adverse Reactions, Alerts [...] times a day, take w/ 100mg tablet [id number] BID, Refills 0, Maintenance, 06/23/24 8:24:00 AM [...] times a day, take w/ 600mg bid [id number],, Refills 0, Maintenance,06/23/24 8:26:00 AM EST, Partial [...] times a day, taqke w/ 500mg BID [id number], 0 Refills, Maintenance, 06/23/24 8:29:00 AM EST, [...] Unknown, 3 Refills, Maintenance,11/09/22 12:45:00 PM EDT, [facility], Partial fill [...] Position: Reference Physician Member Role: PCP Address: [address] [place] [address] Telecom: Care Team Related Persons Name: MARCIE WEN Name: KAREL TAFOYA Insurance Providers Guarantor name: KRISHNA Health Plan Information #: 1 Payer: MEDICARE PART B OUTPT Member Number: NA Policy Number: NA Group Number: NA Health Plan Information #: 2 Payer: [facility] Member Number: NA Policy Number: NA Group Number: NA
--- OUTSIDE RECORDS SUMMARY | 2024-09-04 19:39 | XMS_ITS | Continuity of Care Document ---
Author Organization [facility] Address [address] [facility], [address], [address] [place] [address]- Care Team Providers Care Factory Superintendent Name Role Phone Low Isaac MD Primary Care Physician Encounter [facility] AC[facility] R [id number] Date(s): 07/28/24 - 08/27/24 [facility] [address] [facility] 3[address] Floor, [address] [place] [address]- Attending Physician: Bernardino Pérez Admitting Physician: Bernardino Pérez Referring Physician: Bernardino Pérez Encounter Type: Triage Allergies, Adverse Reactions, Alerts [...] PM EDT, Route to Pharmacy Electronically, [facility], 193, cm, 04/28/24 8:56:00 EDT, Height, 120.2, kg, 04/22/24 8:54:00 EDT, Dry Weight Start Date: 05/27/24 Status: Ordered Quantity: 56.0 Unit: tablet Repeat number: 1 carBAMazepine 400 mg oral tablet, extended release 400 mg, 1, tablet, By Mouth, 2 times a day, take w/ 100mg tablet [id number] BID, Refills 0, Maintenance, 06/23/24 8:24:00 AM [...] times a day, take w/ 600mg bid [id number],, Refills 0, Maintenance,06/23/24 8:26:00 AM EST, Partial [...] times a day, taqke w/ 500mg BID [id number], 0 Refills, Maintenance, 06/23/24 8:29:00 AM EST, [...] Unknown, 3 Refills, Maintenance,11/09/22 12:45:00 PM EDT, [facility], Partial fill upon patient request [...] on: 02/09/23 Sex Sex Representation Male (finding) Radiology * Event Display: CT Scan Head, Non- BH Authored Date: Patient Care team information Care Team Personnel Name: Low Isaac MD Position: Reference Physician Member Role: PCP Address: [address] [place] [address]- Telecom: Care Team Related Persons Name: MARCIE WEN Name: KAREL TAFOYA Insurance Providers Guarantor name: KRISHNA Health Plan Information #: 1 Payer: MEDICARE PART B OUTPT Member Number: NA Policy Number: NA Group Number: NA Health Plan Information #: 2 Payer: [facility] Member Number: NA Policy Number: NA Group Number: NA
--- OUTSIDE RECORDS SUMMARY | 2024-09-04 19:39 | XMS_ITS | Continuity of Care Document ---
Author Organization [facility] Address [address] [facility], 3r d Floor, [address] [place] [address]- Care Team Providers Care Flight Attendant Ramp Name Role Phone Low Isaac MD [facility] [id number] Date(s): 05/02/24 - 08/30/24 [facility] [address] [facility] 3rd Floor, [address] [place] [address]- Attending Physician: Juventino Whiting MD Admitting Physician: Juventino Whiting MD Encounter Type: Pre-OutPatient One Time Allergies, [...] PM EDT, Route to Pharmacy Electronically, [facility], 193, cm, 04/28/24 8:56:00 EDT, Height, 120.2, kg, 04/22/24 8:54:00 EDT, Dry Weight Start Date: 05/27/24 Status: Ordered Quantity: 56.0 Unit: tablet Repeat number: 1 carBAMazepine 400 mg oral tablet, extended release 400 mg, 1, tablet, By Mouth, 2 times a day, take w/ 100mg tablet [id number] BID, Refills 0, Maintenance, 06/23/24 8:24:00 AM [...] times a day, take w/ 600mg bid [id number],, Refills 0, Maintenance,06/23/24 8:26:00 AM EST, Partial [...] times a day, taqke w/ 500mg BID [id number], 0 Refills, Maintenance, 06/23/24 8:29:00 AM EST, [...] Unknown, 3 Refills, Maintenance,11/09/22 12:45:00 PM EDT, [facility], Partial fill upon patient request [...] Position: Reference Physician Member Role: PCP Address: [address] [place] [address] Telecom: Care Team Related Persons Name: MARCIE WEN Name: KAREL TAFOYA Insurance Providers Guarantor name: KRISHNA Health Plan Information #: 2 Payer: [employer] Member Number: [id number] Policy Number: NA Group Number: KRISHNA Health Plan Information #: 1 Payer: MEDICARE PART B OUTPT Member Number: [id number] Policy Number: KRISHNA Group Number: NA
--- OUTSIDE RECORDS SUMMARY | 2024-09-04 19:39 | XMS_ITS | Data Portability ---
Author Organization [place] [facility] Address [facility] [place] [address] Care Team Providers Care General Office Clerk Name Role Phone BEATRIZ ROYAL Primary Care Provider Assessment Encounter Date Assessment Date Assessment LastModified by Organization Details LastModified Time 04/17/2021 04/17/2021 Time On Scene with Patient: 00:28:01 DDX: viral pharyngitis, COVID, dry throat Pt appears well though mother is concerned for patient's occasionally hoarse voice. There has been no fevers, malaise, behavior changes. He has been eating well and normal for him. NO increased work of breathing NOR cough. COVID testing done as requested by mother of patient. After which patient hurredly went up t his room so he could watch TV. Mother was informed of 1-3 day wait for COVID results. Also to seek re-evaluation with any respiratory symptoms or other concerns. [email or web address] Not available 04/17/2021 19:11:29 Plan of Treatment Reminders Order Date Submit Date Provider Last Modified By Organization Details Last Modified Time Details Appointments None recorded. Lab unlisted lab - covid-19 (novel coronaviru s) PCR 2020 0[address] [place] [facility], [address] [place], [address], 21:01:33 Referral None recorded. Procedures None recorded. Surgeries None recorded. Imaging None recorded. Medication Orders Debrox 6.5 % ear drops 2020 021 [place] [id number], [phone] [place], [address], 16:13:14 Patient TargetsNo targets recorded. Patient InstructionsNo instructions recorded. Reason for Referral None Reported. Results Created Date Observation Date Name Description Value Unit Range Abnormal Flag Note LastModifiedBy Organization Detail LastModifiedTime 04/17/20 21 04/18/2021 COVID -19 (NOVE L CORON AVIRU S) PCR covid-19 PCR result (neg) NEGAT IONA 2019- novel Coron aviru s (2019 -nCoV ) not detec sanchez by real- time RT-PC R. Note: If clini karina suspi cion for COVID -19 is high, alyssa nue to maint ain preca ution s and consi crissy repea t testi ng. Resul t repor sanchez to the [facility]. To preve nt error s in diagn osis, test resul ts shoul d be inter prete d in the esdras xt of clini karina findi ngs and other labor atory data. Rare polym orphi sms exist that could lead to false -nega tive or false -posi tive resul ts. If resul ts obtai deisy do not match the clini karina findi ngs, addit ional testi ng shoul d be consi dered . This test has been autho rized by the FDA under an Emerg ency Use Autho rizat ion (EUA) for use by autho rized labor atori es. Testi ng perfo rmed by real time PCR utili [facility] PARDEEP Runteq0 SARS- CoV-2 test. Not Available [facility] [address], [place], [address], 04/18/2021 21:01:33 04/17/20 21 04/18/2021 COVID -19 (NOVE L CORON AVIRU S) PCR covid-19 PCR specimen source NASAL Not Available [facility] [address] [place], [address], 04/18/2021 21:01:33 Result Notes None recorded. Medical Equipment None Reported. Allergies No known drug allergies Medications Name Sig Start Date Stop Date Status Note LastModified by Organization Details LastModified Time amoxicillin 500 mg capsule active Not Available Not Availab le Not Available clonidine HCl 0.1 mg tablet active Not Available Not Availabl e Not Available gabapentin 600 mg tablet active Not Available Not Available No t Available atorvastatin 20 mg tablet active Not Available Not Available Not Available azithromycin 250 mg tablet active Not Available Not Availabl e Not Available gabapentin 400 mg capsule active Not Available Not Available N ot Available risperidone 3 mg tablet active Not Available Not Available No t Available carbamazepine 200 mg tablet active Not Available Not Availabl e Not Available clonidine HCl 0.2 mg tablet active Not Available Not Availabl e Not Available levetiracetam 250 mg tablet active Not Available Not Availabl e Not Available trazodone 100 mg tablet active Not Available Not Available No t Available trazodone 150 mg tablet active Not Available Not Available No t Available benztropine 1 mg tablet active Not Available Not Available No t Available lorazepam 1 mg tablet active Not Available Not Available Not Available albuterol sulfate HFA 90 mcg/actuation aerosol inhaler active Not Available Not Available Not Available carbidopa 25 mg-levodopa 100 mg tablet active Not Available Not Availabl e Not Available Murine Ear 6.5 % drops INSTILL 5 DROPS INTO AFFECTED EAR TWICE A DAY active Not Available Not Available No t Available carbamazepine ER 100 mg capsule,extend ed release [id number] active Not Available Not Available N ot Available levetiracetam 1,000 mg tablet active Not Available Not Available Not Available Nurtec ODT 75 mg disintegrating tablet active Not Available Not Available Not Available Vitals Date Recorded Heart rate Body temperature Oxygen saturation Oxygen saturation in Arterial blood by Pulse oximetry Respiratory rate Systolic blood pressure Diastolic blood pressure Provider Name and Address Organization Details Last Updated DateTime 1 94 /min 98 [degF] 96 % 96 % 18 /min 120 mm[Hg] 76 mm[Hg] Not Available [facility] 1 16:11:45 Social History None recorded. Functional Status None recorded. Mental Status None recorded. Family History Nothing Reported. Medical History No medical history recorded. Past Encounters Encounter ID Performer Location Encounter Start Date Encounter Closed Date Diagnosis/Indication Diagnosis SNOMED-CT Code Diagnosis ICD10 Code Diagnosis Note [id number] LOUIE RICE NP [facility] [address] [place] [address] POLI DELANEY [id number] 04/17/2021 16:00:29 04/25/2021 15:24:11 Hoarse 53388653 R49.0 Exposure t o communicable disease 770357001 Z20.822 Impacted c erumen in left ear 5535850542 782250 H61.22 Health Concerns Section Related Observation LastModified by Organization Detai ls LastModified Time None Recorded Concern Status LastModified by Organization Details LastModified Time None Recorded Advance Directives Directive None Recorded Payers Encounter Date Sequence Insurance Name Policy Number Policy Corbin Covered Member ID Corbin Member ID Guarantor Name 04/17/2021 1 [place] [employer] Ethan Valdovinos [id number] Ethan Valdovinos 04/17/2021 2 [place] [facility] Valdovinos [id number] Ethan Bonifacio Notes Date Note Type Note Provider Name and Address Organization Details Recorded Time 04/17/2021 text/html 36 year-old male with history of cervical dystonia, MMR, seizures whose mother comes to the home to evaluate patient for hoarse voice. Pt got up in the middle of the night to go to the bathroom which is normal for him. When the mother asked him how he was he had a hoarse voice. Today the voice is normal with occasional hoarseness noted. NO shortness of breath, NO cough, NO change in appetite. Pt has been behaving his norm. Mother wants to make sure he does not have COVID. PT is fully vaccinated. LOUIE RICE, JAIME [address], [place], [address], [place] - [facility] 04/17/2021 19:11:38
== END 2024-09-04 17:41 | disposition home or self-care (01) ==
PROVIDERS: PCP Internal Medicine; Visit Provider Physician Assistant Medical
DX: J02.9 Acute pharyngitis, unspecified (principal); M54.2 Cervicalgia

== ENCOUNTER → 2024-09-04 16:28 | Outpatient (BNVA) | payer MEDICARE, MEDICAID, SELFPAY | PROVIDERS: PCP Internal Medicine; Visit Provider Physician Assistant Medical | DX: J02.9 Acute pharyngitis, unspecified (principal); M54.2 Cervicalgia | CPT/HCPCS: 99212 ==

== ENCOUNTER 2024-10-15 09:54 | Outpatient (AMB) | payer MEDICARE, MEDICAID, SELFPAY ==
[2024-10-15 09:58] VITALS: BP 100/64; PULSE 79; RESP 18; TEMP 36.3; O2SAT 98; BMI 30.7
--- NOTE | 2024-10-15 09:58 | A.OFFPC_ITS ---
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: No Accompanied by: Mother Allergies No Known Allergies [No Known Allergies*] Allergy (Verified 10/15/24 10:21) Medication List - Last Reconciled 10/21/24 by LYNDA Saha acetaminophen 650 mg (2 x 325 mg) PO Q4-6H PRN 30 days [ADULT BRIEFS (2XL) As directed] ammonium lactate 12% 1 appl topical BID PRN 30 days atorvastatin 20 mg PO DAILY benztropine 1 mg PO BID carbamazepine ER 500 mg (5 x 100 mg) PO BID 30 days carbamazepine ER mg PO cholecalciferol (vitamin D3) (Vitamin D3) 50 mcg PO DAILY clonidine HCl 0.1 mg PO BID 90 days clonidine HCl 0.2 mg PO BEDTIME 90 days diazepam mg PO PRN [DISPOSABLE WIPES As directed] fluvoxamine mg PO DAILY gabapentin 600 mg PO BID 30 days gabapentin 400 mg PO TID levetiracetam 750 mg PO BID 30 days levetiracetam 1,000 mg PO BID lorazepam 1 mg PO BID onabotulinumtoxinA units IM [id number] risperidone 3 mg PO QAM risperidone 2 mg PO QPM risperidone mg PO DAILY trazodone 150 mg PO BEDTIME trazodone 100 mg PO BEDTIME Tobacco use date assessed: 10/15/24 Dental Screening Dental Screen Date: 10/15/24 Did you have a dental visit in the last 12 months?: Yes Did you have a dental problem in the last 6 months where you did not have access to dental care?: No Was dental information given to patient?: Patient has dentist HPI Annual Exam HPI Details Patient was accompanied by mother. Presenting for annual evaluation Dentist: up to date Eye: Snellen: Right: Left: Corrected vision: has an appt on the STI screening:n/a Colonoscopy:n/a Pap Smer:n/a PHQ-9: Flu:up to date COVID: x4 Tdap: up to date, due next year Diet: regular Exercise: none PFSH Medical History Cervical dystonia Obesity (BMI 30-39.9) Obsessive compulsive disorder Autism Vitamin D deficiency Pure hypercholesterolemia Epilepsy Surgical History History of elbow surgery History of excision of mass Family History Mother Medical history unknown Social History Housing: Apartment Alcohol intake: never Patient Tobacco Use Status: Never used Tobacco e-Cigarette/Vaping Use: Never Used Second Hand Smoke Exposure: No service: No Current occupational status: disabled Cognitive needs: Yes Hearing needs: No Vision needs: No Questionnaire PHQ-9 Over the last 2 weeks, how often have you been bothered by any of the following problems? 29571 - PHQ-9 Billing: Patient declined-do not bill Source: Developed by Drs. William Romero, Gi Jarrell, Praneeth Baez and colleagues, with an educational donta from [employer]. Thrive Questionnaire Date Thrive assessed: 10/15/24 I am a: Parent/Caregiver What is your living situation today?: I choose not to answer this question Within the past 12 months, did the food you bought not last and you didn't have the money to get more?: I choose not to answer this question Within the past 12 months, did you worry whether your food would run out before you got money to buy more?: I choose not to answer this question Do you have trouble paying for medicines?: I choose not to answer this question Do you have trouble getting transportation to medical appointments?: No Do you have trouble paying your heating and electricity bill?: No Do you have trouble taking care of your child, family member or friend?: No Do you have trouble with day-to-day activities such as bathing, preparing meals, shopping, managing finances, etc.?: No Are you currently unemployed and looking for a job?: No Are you interested in more education?: No Please select the resources that you would like help with: None Currently or been in a relationship where the following occur: I choose not to answer THRIVE Score: 0 AUDIT C Alcohol Use Questionnaire (AUDIT-C) 1. How often do you have a drink containing alcohol?: Never Total Score: 0 DANII-7 AMB Questionnaire DANII-7 Date DANII - 7 assessed: 10/15/24 Feeling nervous, anxious, or on edge: 2 = More than half the days Not being able to stop or control worryin = Not at all Worrying too much about different things: 0 = Not at all Trouble relaxin = Not at all Being so restless that it is hard to sit still: 0 = Not at all Becoming easily annoyed or irritable: 0 = Not at all Feeling afraid as if something awful might happen: 0 = Not at all Total DANII-7 score (0-4 normal; 5-9 mild; 10-14 moderate; 15-21 severe): 2 Source: Developed by Drs. William Romero, Gi Jarrell, Praneeth Baez and colleagues, with an educational donta from [employer]. Review of Systems Const Details: Information collected from mother due to the patient mental disability Denies headache(s) Eyes Denies loss of vision ENT Denies vertigo, Denies dizziness, Denies headache(s), Reports neck pain (Due to cervical dystonia-frequent Botox injections) and Denies sore throat Card Denies chest pain, Denies leg edema and Denies lightheadedness Resp Denies cough, Denies hemoptysis and Denies wheezing GI Denies abdominal pain, Denies melena, Denies constipation, Denies diarrhea and Denies vomiting Denies dysuria, Denies urinary frequency, Reports urinary incontinence (Intermittently) and Denies urinary urgency Musc Denies arthralgias, Denies joint swelling, Reports neck pain (Due to cervical dystonia-frequent Botox injections), Denies numbness and Denies tingling Neuro Denies behavioral changes, Denies vertigo, Denies dizziness, Denies headache(s), Denies loss of vision, Denies memory loss, Denies numbness, Reports convulsions (Intermittently) and Denies tingling Psych Denies anxiety, Denies behavioral changes, Denies depression, Denies memory loss, Denies panic attacks and Reports other Rodo/Lymph Denies easy bleeding and Denies easy bruising Aller/Immun Denies wheezing Physical exam (Primary Care) Vital Signs: Last Vital Signs Temp 97.3 F 10/15/24 09:58 Pulse 79 10/15/24 09:58 Resp 18 10/15/24 09:58 BP 100/64 10/15/24 09:58 Pulse Ox 98 10/15/24 09:58 Oxygen Delivery Method Room Air 10/15/24 09:58 BMI result Body Mass Index 30.7 Tobacco/Smoking Status: Tobacco use Status Tobacco use date assessed 10/15/24 10/15/24 10:04 Patient Tobacco Use Status Never used Tobacco 10/15/24 10:04 e-Cigarette/Vaping Use Never Used 10/15/24 10:04 PHQ-9: PHQ-9 Score PHQ-9: Total score 0 10/15/24 10:04 Thrive Assessment: Date of Thrive Assessment Date Thrive assessed 10/15/24 10/15/24 10:04 Currently or been in a relationship where the following occur: I choose not to answer Const General: no acute distress Nutritional Appearance: well nourished Orientation/consciousness: Other orientation findings (Limited exam-mental disability) Limitations: other limitations (Autistic) [facility] Head: Yes normocephalic Ears: TM's normal bilaterally General nose exam: Normal nasal mucous membranes and turbinates present Eyes Conjunctivae: conjunctivae normal Sclerae: sclerae normal Pupils: Equal, round and reactive pupils present Neck Neck: Yes no lymphadenopathy and Yes no JVD Thyroid: Thyroid normal Carotids: no bruits Resp Effort & Inspection: normal respiratory effort and not tachypneic Auscultation: no crackles, no rales, no rhonchi and no wheezes Cardio Rate: regular rate Rhythm: regular rhythm Heart sounds: no murmurs and normal S1 and S2 GI Palpation (GI): Soft to palpation, nontender, no hepatomegaly and no splenomegaly Auscultation: normal bowel sounds Skin General skin exam: no rashes or lesions noted and dry skin Neuro General: other (Limited-due to the patient's decreased ability to comply assessment) Cranial nerves: Yes Equal, round and reactive pupils present Gait exam (Neuro): Normal gait present Motor exam (neuro): no tremor noted Extrem Right upper extremity: full ROM Left upper extremity: full ROM Right lower extremity: full ROM; no edema Left lower extremity: full ROM; no edema Coding Level of Care Code Est Pt Prev Care 18-39y(08290) Diagnoses Annual physical exam Z00.00 Nonintractable epilepsy without status epilepticus, unspecified epilepsy type G40.909 Epilepsy type: unspecified Intractability: not intractable Status epilepticus: without status epilepticus Cervical dystonia G24.3 Opacity of lung on imaging study R91.8 Autism F84.0 Obsessive-compulsive disorder, unspecified type F42.9 Obsessive-compulsive disorder type: unspecified Vitamin D deficiency E55.9 Pure hypercholesterolemia E78.00 Obesity (BMI 30-39.9) E66.9 Allergic conjunctivitis, unspecified laterality H10.10 Laterality: unspecified laterality Urinary incontinence, unspecified type R32 Incontinence type: urinary Urinary Incontinence type: unspecified incontinence Time Spent (min) 38 Assessment & Plan Assessment & Plan (1) Annual physical exam: Code(s): Z00.00 - Encounter for general adult medical examination without abnormal findings Category: Medical Plan: Preventative guidelines reviewed with the patient and mother. No recent labs completed to be reviewed. Encouraged mother to bring the patient to get these done sergio. (2) Epilepsy: Code(s): G40.909 - Epilepsy, unspecified, not intractable, without status epilepticus Category: Medical Qualifiers: Epilepsy type: unspecified Intractability: not intractable Status epilepticus: without status epilepticus Qualified Code(s): G40.909 - Epilepsy, unspecified, not intractable, without status epilepticus Plan: Patient recently had breakthrough seizures last week and was brought to the ER - head CT done at the ER came out negative His Levetiracetam was increased to 1750 mg BID (per neurology recommendations) Continue Carbamazepine ER 500 mg BID (100 mg caps - 5 caps BID) Follow up with neurology as scheduled (3) Cervical dystonia: Code(s): G24.3 - Spasmodic torticollis Category: Medical Plan: Patient is still getting Botox injections into both sides of the neck regularly every 3 months from Neurology He was tried on Nurtec ODT, which patient's mother states did not help much He was also started on Sinemet 25-100 mg previously to take PRN but no more than 2 tablets in 24 hours last year but these have been discontinued since Follow up with neurology as scheduled (4) Opacity of lung on imaging study: Code(s): R91.8 - Other nonspecific abnormal finding of lung field Category: Medical Plan: Chest x-rays done at the ER last week revealed (+) possible left lower lobe opacity and he was recommended to have a repeat chest x-ray done in 2-4 weeks with his PCP for follow-up on this Repeat x-ray showed a large mass-like opacity in the upper right medi astinal/thorac inlet region to the left, possibly related to enlarged thyroid versus other mass. Dedicated thyroid ultrasound or CT scan of the chest/neck recommended for further evaluation Will go ahead and order a thyroid ultrasound (5) Autism: Code(s): F84.0 - Autistic disorder Category: Medical Plan: Continue Clonidine 0.1 mg twice a day in AM and at 4 pm and Clonidine 0.2 mg daily at bedtime for now He was recommended by neurology to follow up with his psychiatrist regarding some increased OCD symptoms and restless behavior noted when he was admitted to [facility] last week despite his current Rx His mother states that patient has a follow up appointment scheduled with his psychiatrist (6) Obsessive compulsive disorder: Code(s): F42.9 - Obsessive-compulsive disorder, unspecified Category: Medical Qualifiers: Obsessive-compulsive disorder type: unspecified Qualified Code(s): F42.9 - Obsessive-compulsive disorder, unspecified Plan: Continue Benztropine Mesylate 1 mg BID, Risperdal 3 mg at 8 am and 2.5 mg at 4 pm (is slowly being weaned down by psychiatry), Gabapentin 600 mg + 400 mg (total of 1000 mg) BID and Trazodone 150 mg + 100 mg (total of 250 mg) Q HS Follow up with psychiatry as scheduled (7) Vitamin D deficiency: Code(s): E55.9 - Vitamin D deficiency, unspecified Category: Medical Plan: Continue cholecalciferol 50 mcg daily (8) Pure hypercholesterolemia: Code(s): E78.00 - Pure hypercholesterolemia, unspecified Category: Medical Plan: No recent labs to compared with, encouraged foods low in cholesterol and activity as tolerated (9) Obesity (BMI 30-39.9): Code(s): E66.9 - Obesity, unspecified Category: Medical Plan: Discussed macronutrients and cutting simple and flour based carbs from the diet and increasing vegetables and good proteins and fats. Discussed exercising 3-5 days a week for at least 30 minutes to help boost metabolism and maintain strong muscles to maintain weight. (10) Allergic conjunctivitis: Code(s): H10.10 - Acute atopic conjunctivitis, unspecified eye Category: Medical Qualifiers: Laterality: unspecified laterality Qualified Code(s): H10.10 - Acute atopic conjunctivitis, unspecified eye Plan: Limit exposure to allergens Air purifiers and dust filters Air conditioner in house, especially where sleeping (11) Incontinence: Code(s): R32 - Unspecified urinary incontinence Category: Medical Qualifiers: Incontinence type: urinary Urinary Incontinence type: unspecified incontinence Qualified Code(s): R32 - Unspecified urinary incontinence Plan: Reduce or eliminate fluid intake a few hours before bedtime limit or eliminate caffeine and alcohol, especially in the evening Occurring mostly at bedtime, at times and he wears adult pull ups at night to accomodate for this Orders: Orders Comprehensive [place]. Panel Fast 3 Months E55.9 - Vitamin D deficiency, unspecifi ed, E66.9 - Obesity, unspecified, E78.00 - Pure hypercholesterolemia, unspecified, G24.3 - Spasmodic torticollis, G40.909 - Epilepsy, unspecified, not intractable, without status epilepticus, R09.81 - Nasal congestion, R32 - Unspecified urinary incontinence Vitamin D 25-OH Total 3 Months E55.9 - Vitamin D deficiency, unspecified, E66.9 - Obesity, unspecified, E78.00 - Pure hypercholesterolemia, unspecified, G24.3 - Spasmodic torticollis, G40.909 - Epilepsy, unspecified, not intractable, without status epilepticus, R09.81 - Nasal congestion, R32 - Unspecified urinary incontinence UA CC w/rflx Micro + Cult 3 Months E55.9 - Vitamin D deficiency, unspecified, E66.9 - Obesity, unspecified, E78.00 - Pure hypercholesterolemia, unspecified, G24.3 - Spasmodic torticollis, G40.909 - Epilepsy, unspecified, not intractable, without status epilepticus, R09.81 - Nasal congestion, R32 - Unspecified urinary incontinence TSH reflex Free T4 3 Months E55.9 - Vitamin D deficiency, unspecified, E66.9 - Obesity, unspecified, E78.00 - Pure hypercholesterolemia, unspecified, G24.3 - Spasmodic torticollis, G40.909 - Epilepsy, unspecified, not intractable, without status epilepticus, R09.81 - Nasal congestion, R32 - Unspecified urinary incontinence Levetiracetam Keppra 3 Months E55.9 - Vitamin D deficiency, unspecified, E66.9 - Obesity, unspecified, E78.00 - Pure hypercholesterolemia, unspecified, G24.3 - Spasmodic torticollis, G40.909 - Epilepsy, unspecified, not intractable, without status epilepticus, R09.81 - Nasal congestion, R32 - Unspecified urinary incontinence Carbamazepine Tegretol 3 Months E55.9 - Vitamin D deficiency, unspecified, E66.9 - Obesity, unspecified, E78.00 - Pure hypercholesterolemia, unspecified, G24.3 - Spasmodic torticollis, G40.909 - Epilepsy, unspecified, not intractable, without status epilepticus, R09.81 - Nasal congestion, R32 - Unspecified urinary incontinence Lipid Panel 3 Months E55.9 - Vitamin D deficiency, unspecified, E66.9 - Obesity, unspecified, E78.00 - Pure hypercholesterolemia, unspecified, G24.3 - Spasmodic torticollis, G40.909 - Epilepsy, unspecified, not intractable, without status epilepticus, R09.81 - Nasal congestion, R32 - Unspecified urinary incontinence Medications: Refilled acetaminophen 650 mg (2 x 325 mg) PO Q4-6H 30 days PRN 240 tabs 5RF headaches or pain
--- OUTSIDE RECORDS SUMMARY | 2024-10-15 11:08 | XMS_ITS | Continuity of Care Document ---
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 Name Role Phone Poncho MARIN, Low Penaloza Primary Care Phys[id number] Date(s): 09/04/24 - 10/04/24 [facility] [address] [place] [address] 3rd Floor, [address] [place] [address]- Encounter Type: Triage Allergies, Adverse Reactions, Alerts [...] Quantity: 60.0 Unit: tablet Repeat number: 1 Botox 200 units injection See Instructions, To be injected by neurologist for cervical dystonia, # 2 mL, 0 Refills, Maintenance, 09/25/24 9:50:00 AM EST, Partial fill upon patient request if the prescription is for a schedule II opioid drug. Start Date: 09/25/24 Status: Ordered Quantity: 2.0 Unit: mL Repeat number: 1 carBAMazepine 100 mg oral tablet, extended release 1, tablet, By Mouth, 2 times a day, GIVE WITH CARBAMAZEPINE. FOR TOTAL OF 500MG*., # 56 tablet, Refills 0, Maintenance, 05/27/24 2:28:00 PM EDT, Route to Pharmacy Electronically, [facility], 193, cm, 04/28/24 8:56:00 EDT, Height, 120.2, kg, 04/22/24 8:54:00 EDT, Dry Weight Start Date: 05/27/24 Status: Ordered Quantity: 56.0 Unit: tablet Repeat number: 1 carBAMazepine 400 mg oral tablet, extended release 400 mg, 1, tablet, By Mouth, 2 times a day, take w/ 100mg tablet [id number] BID, Refills 0, Maintenance, 06/23/24 8:24:00 AM [...] cm, 11/01/23 10:59:00 EDT, Height, 113.6, kg, 05/15/23 18:02:00 EDT, Dry Weight Start Date: 01/23/25 Stop Date: 01/24/25 Status: Ordered Quantity: 12.0 Unit: tablet Repeat number: 3 gabapentin 400 mg oral capsule See Instructions, TAKE 1 CAPSULE BY MOUTH 3 TIMES DAILY IN THE MORNING, AT NOON, AND IN THE EVENING. AM AND PM DOSES GIVEN IN ADDITION TO 600MG PACK #22 DOSES DAY PROGRAM (NOON DOSE), # 90 Unknown, Refills 0, Maintenance, 09/24/24 1:23:00 PM EST, Instructions Replace Required Details, Route to Pharmacy Electronically, [facility], 194, cm, 09/22/24 14:51:00 EST, Height, 115, kg, 9:25:00 EST, Dry Weight Start Date: 09/24/24 Status: Ordered Quantity: 90.0 Unit: Unknown Repeat number: 1 Keppra 750 mg oral [...] times a day, taqke w/ 500mg BID [id number], 0 Refills, Maintenance, 06/23/24 8:29:00 AM EST, [...] Unknown, 3 Refills, Maintenance,11/09/22 12:45:00 PM EDT, [facility], Partial fill upon patient request [...] Care team information Care Team Personnel Name: Poncho MARIN, Low Penaloza Position: Reference Physician Member Role: PCP Address: [address] [place] [address] Telecom: Care Team Related Persons Name: MARCIE WEN Name: KAREL TAFOYA Insurance Providers Guarantor name: KRISHNA Health Plan Information #: 1 Payer: MEDICARE PART B OUTPT Member Number: NA Policy Number: NA Group Number: NA Health Plan Information #: 2 [facility] Member Number: NA Policy Number: NA Group Number: NA
--- OUTSIDE RECORDS SUMMARY | 2024-10-15 11:08 | XMS_ITS | Clinical Summary ---
Author Organization [facility] Address [address] [place] [address] Care Team Providers Care Mine Engineer Name Role Phone Unavailable Primary Care Provider [...] 3 - 19 + 3-dose series) 2005 [id number] ( season) 04/06/20242 021, 12/13/2020 Imm-Influenza (#1) 2024 04/22/2018, 1 , 05/11/2016, Additional history exists Alcohol and Drug Screen 08/06/2024 Depression Annual Screen 08/06/2024 Imm-DTaP/Tdap/Td (2 - Td or Tdap) 05/31/2026 016 [place]
== END 2024-10-15 10:50 | disposition home or self-care (01) ==
LOC: HO.HMCH 09:55
PROVIDERS: PCP Internal Medicine
DX: Z00.00 Encounter for general adult medical examination without abnormal findings (principal); G40.909 Epilepsy, unspecified, not intractable, without status epilepticus; G24.3 Spasmodic torticollis; R91.8 Other nonspecific abnormal finding of lung field; F84.0 Autistic disorder; F42.9 Obsessive-compulsive disorder, unspecified; E55.9 Vitamin D deficiency, unspecified; E78.00 Pure hypercholesterolemia, unspecified; E66.9 Obesity, unspecified; H10.10 Acute atopic conjunctivitis, unspecified eye; R32 Unspecified urinary incontinence

== ENCOUNTER → 2024-10-15 09:54 | Outpatient (BNVA) | payer MEDICARE, MEDICAID, SELFPAY | PROVIDERS: PCP Internal Medicine | DX: Z00.00 Encounter for general adult medical examination without abnormal findings (principal); G40.909 Epilepsy, unspecified, not intractable, without status epilepticus; G24.3 Spasmodic torticollis; R19.8 Other specified symptoms and signs involving the digestive system and abdomen; F84.0 Autistic disorder; F42.9 Obsessive-compulsive disorder, unspecified; E55.9 Vitamin D deficiency, unspecified; E78.00 Pure hypercholesterolemia, unspecified; E66.9 Obesity, unspecified; H10.10 Acute atopic conjunctivitis, unspecified eye; R32 Unspecified urinary incontinence | CPT/HCPCS: 99395 ==

== ENCOUNTER 2025-02-17 16:47 | Outpatient (AMB) | payer MEDICARE, MEDICAID, SELFPAY ==
--- OUTSIDE RECORDS SUMMARY | 2025-02-15 23:59 | XMS_ITS | Continuity of Care Document ---
Author Organization [facility] Address [address] [facility], [address] Floor, [address] [place] [id number]- Care Team Providers Care Recycling Sorter Name Role Phone Low Isaac MD Primary Care Physician [phone] [id number] Date(s): 01/16/25 - 02/15/25 [facility] [address] [facility] 3rd Floor, [address] [place] [address]- Encounter Type: Triage Allergies, Adverse Reactions, Alerts [...] TOTAL OF 500MG*., # 56 tablet, Refills 5, Tot. Refills 5, Maintenance, 10/10/24 2:38:00 PM EST, Route to Pharmacy Electronically, [facility]; [facility], 194, cm, 09/22/24 14:51:00 EST, Height, 115, kg, 09/11/24 9:25:00 EST, Dry Weight Start Date: 10/10/24 Status: Ordered Quantity: 56.0 Unit: tablet Repeat number: 6 carBAMazepine 400 mg oral tablet, extended release 400 mg, 1, tablet, By Mouth, 2 times a day, take w/ 100mg tablet [id number] BID, Refills 0, Maintenance, 06/23/24 8:24:00 AM EST, Partial fill upon patient request if the prescription is for a schedule II opioid drug. Start Date: 06/23/24 Status: Ordered Repeat number: 1 carBAMazepine 400 mg oral tablet, extended release See Instructions, TAKE 1 TABLET BY MOUTH TWICE DAILY., # 56 tablet, Refills 5, Tot. Refills 5, Maintenance, 10/10/24 2:38:00 PM EST, Instructions Replace Required Details, Route to Pharmacy Electronically, [facility], 194, cm, 09/22/24 14:51:00 EST, Height, 115, kg, 09/11/24 9:25:00 EST, Dry Weight Start Date: 10/10/24 Status: Ordered Quantity: 56.0 Unit: tablet Repeat number: 6 cloNIDine 0.1 mg oral tablet 0.1 mg, [...] tablet, Refills 2, Tot. Refills 2, Acute 01/17/26 9:07:00 AM EDT, Seizure Activity, 01/24/25 6:29:00 AM EDT, Route to Pharmacy Electronically, [facility], Partial fill upon patient request if the prescription is for a schedule II opioid drug., 194, cm, 12/18/24 8:30:00 EDT, Height, 115, kg, 09/11/24 9:25:00 EST, Dry Weight Start Date: 01/24/25 Stop Date: 01/17/26 Status: Ordered Quantity: 12.0 Unit: tablet Repeat number: 3 gabapentin 600 mg oral tablet 1 tablet, By Mouth, 2 times a day, *GIVE WITH GABAPENTIN 400MG FOR TOTAL DOSE OF 1 GRAM TWICE DAILY*, # 56 tablet, 2 Refills, Maintenance, 01/06/25 7:36:00 AM EDT, [facility], 194, cm, 12/18/24 8:30:00 EDT, Height, 115, kg, 09/11/24 9:25:00 EST, Dry Weight Start Date: 01/06/25 Status: Ordered Quantity: 56.0 Unit: tablet Repeat [...] times a day, taqke w/ 500mg BID [id number], 0 Refills, Maintenance, 06/23/24 8:29:00 AM EST, [...] Unknown, 3 Refills, Maintenance,11/09/22 12:45:00 PM EDT, [facility], Partial fill upon patient [...] Position: Reference Physician Member Role: PCP Address: [address] [place] [address] Telecom: Care Team Related Persons Name: MARCIE WEN Name: KAREL TAFOYA Insurance Providers Guarantor name: KRISHNA Health Plan Information #: 1 Payer: MEDICARE B Payer Identifier: KRISHNA Member Number: [id number] Group Number: KRISHNA Subscriber Identifier: [id number] Relationship to Subscriber: self Coverage Type: NA Coverage Verification Date: KRISHNA Telecom: NA Address: KRISHNA Health Plan Information #: 2 Payer: [employer] Payer Identifier: KRISHNA Member Number: [id number] Group Number: KRISHNA Subscriber Identifier: [id number] Relationship to Subscriber: self Coverage Type: MEDICAID Coverage Verification Date: KRISHNA Telecom: KRISHNA Address:
[2025-02-17 16:50] VITALS: BP 100/62; PULSE 84; O2SAT 96; BMI 29.8
--- NOTE | 2025-02-17 16:50 | MHC.PC.OV ---
Vital Signs 02/17/25 16:50 Height 6 ft 4 in Weight 244 lb 8 oz BMI 29.8 BP 100/62 Blood Pressure Location Lt brachial Position Sitting Pulse 84 Pulse Source Pulse Oximeter Pulse Oximetry (%) 96 Oxygen Delivery Method Room Air Intake Visit Reasons: HLD/VIT def/epilepsy Operations And Maintenance Technician Required: No Accompanied by: Self / Same As Patient Allergies No Known Allergies (No Known Allergies*) Allergy (Verified 02/17/25 17:12) Medication List - Last Reconciled 02/17/25 by Low Isaac MD acetaminophen 650 mg (2 x 325 mg) PO Q4-6H PRN 30 days [ADULT BRIEFS (2XL) As directed] ammonium lactate 12% 1 appl topical BID PRN 30 days atorvastatin 20 mg PO DAILY benztropine 1 mg PO BID carbamazepine ER 500 mg (5 x 100 mg) PO BID 30 days carbamazepine ER mg PO cholecalciferol (vitamin D3) (Vitamin D3) 50 mcg PO DAILY clonidine HCl 0.1 mg PO BID 90 days clonidine HCl 0.2 mg PO BEDTIME 90 days diazepam mg PO PRN [DISPOSABLE WIPES As directed] fluvoxamine mg PO DAILY gabapentin 600 mg PO BID 30 days gabapentin 400 mg PO TID levetiracetam 750 mg PO BID 30 days levetiracetam 1,000 mg PO BID lorazepam 1 mg PO BID onabotulinumtoxinA units IM [id number] risperidone 3 mg PO QAM risperidone 2 mg PO QPM risperidone mg PO DAILY trazodone 150 mg PO BEDTIME trazodone 100 mg PO BEDTIME Tobacco use date assessed: 02/17/25 Dental Screening Dental Screen Date: 02/17/25 Did you have a dental visit in the last 12 months?: Yes Did you have a dental problem in the last 6 months where you did not have access to dental care?: No Was dental information given to patient?: Patient has dentist HPI HLD/VIT def/epilepsy HPI Details Patient comes in today for his follow up visit - is accompanied as usual by his mother, who is his primary caregiver, guardian and HCP Information is obtained mostly from his mother as patient is not able to participate in meaningful conversations due to his psychiatric issues His mother states that he last had a seizure episode a couple of weeks ago on 02/01/2025 He is currently still on Keppra at 1750 mg BID and has a follow up appointment with his neurologist, Dr. Hobbs at [facility], coming up next week on 02/24/2025 States that she is currently in the process of looking for another day program for him and needs some forms completed by us for this purpose States that he had his follow [facility] a few days ago on 02/14/25 and would like to see if his results came out okay Patient is otherwise reportedly doing well and has no other acute complaints or issues He has not complained of headaches recently No chest pains, SOB, nausea/vomiting, abdominal pains or change in bowel habits are noted lately [facility] Medical History Cervical dystonia Obesity (BMI 30-39.9) Obsessive compulsive disorder Autism Vitamin D deficiency Pure hypercholesterolemia Epilepsy Surgical History History of elbow surgery History of excision of mass Family History Mother Medical history unknown Social History Housing: Apartment Alcohol intake: never Patient Tobacco Use Status: Never used Tobacco e-Cigarette/Vaping Use: Never Used Second Hand Smoke Exposure: No service: No Current occupational status: disabled Cognitive needs: Yes Hearing needs: No Vision needs: No Questionnaire PHQ-9 Over the last 2 weeks, how often have you been bothered by any of the following problems? 1. Little interest or pleasure in doing things: not at all 2. Feeling down, depressed, or hopeless: not at all 3. Trouble falling or staying asleep, or sleeping too much: not at all 4. Feeling tired or having little energy: not at all 5. Poor appetite or overeating: not at all 6. Feeling bad about yourself - or that you are a failure or have let yourself or your family down: not at all 7. Trouble concentrating on things, such as reading the newspaper or watching television: not at all 8. Moving or speaking so slowly that other people could have noticed. Or the opposite - being so fidgety or restless that you have been moving around a lot more than usual: not at all 9. Thoughts that you would be better off or of hurting yourself in some way: not at all Total score: 0 Depression Screening Interpretation: Negative Depression Screening Done: Yes 07994 - PHQ-9 Billing: Yes Source: Developed by Drs. William Romero, Gi Jarrell, Praneeth Baez and colleagues, with an educational donta from [employer]. Thrive Questionnaire Date Thrive assessed: 02/17/25 I am a: Parent/Caregiver What is your living situation today?: I choose not to answer this question Within the past 12 months, did the food you bought not last and you didn't have the money to get more?: I choose not to answer this question Within the past 12 months, did you worry whether your food would run out before you got money to buy more?: I choose not to answer this question Do you have trouble paying for medicines?: I choose not to answer this question Do you have trouble getting transportation to medical appointments?: No Do you have trouble paying your heating and electricity bill?: No Do you have trouble taking care of your child, family member or friend?: No Do you have trouble with day-to-day activities such as bathing, preparing meals, shopping, managing finances, etc.?: No Are you currently unemployed and looking for a job?: No Are you interested in more education?: No Please select the resources that you would like help with: None Currently or been in a relationship where the following occur: No concerns reported THRIVE Score: 0 AUDIT C Alcohol Use Questionnaire (AUDIT-C) 1. How often do you have a drink containing alcohol?: Never 3. How often do you have six or more drinks on one occasion?: Never Total Score: 0 Score Reviewed/Action Taken: Yes DANII-7 AMB Questionnaire DANII-7 Date DANII - 7 assessed: 02/17/25 Feeling nervous, anxious, or on edge: 2 = More than half the days Not being able to stop or control worryin = Not at all Worrying too much about different things: 0 = Not at all Trouble relaxin = Not at all Being so restless that it is hard to sit still: 0 = Not at all Becoming easily annoyed or irritable: 0 = Not at all Feeling afraid as if something awful might happen: 0 = Not at all Total DANII-7 score (0-4 normal; 5-9 mild; 10-14 moderate; 15-21 severe): 2 Source: Developed by Drs. William Romero, Gi Jarrell, Praneeth Baez and colleagues, with an educational donta from [employer]. Review of Systems Const Details: Information/ROS is obtained mostly through patient's mother as patient is unable to provide info due to his mental and intellectual disabilities Denies fatigue, Denies fever(s) and Denies headache(s) ENT Denies dysphagia, Denies dizziness, Denies otalgia, Denies headache(s), Reports neck pain (due to cervical dystonia but symptoms are well-controlled on Botox inj.), Denies odynophagia and Denies sore throat Card Denies chest pain, Denies palpitations and Denies dyspnea Resp Denies chest congestion, Denies cough and Denies dyspnea GI Denies abdominal pain, Denies constipation, Denies dysphagia, Denies heartburn, Denies diarrhea, Denies nausea, Denies odynophagia and Denies vomiting Details: wets bed accidentally at night at times Denies difficulty urinating, Denies dysuria, Denies urinary frequency and Reports urinary incontinence (at times, mostly at night) Musc Denies back pain, Denies arthralgias and Reports neck pain (due to cervical dystonia but symptoms are well-controlled on Botox inj.) Skin/Breast Denies rash Neuro Denies dizziness, Denies headache(s) and Reports convulsions (last seizure was reportedly about 2 weeks ago on 02/01/25) Endo Denies fatigue and Denies palpitations Physical exam (Primary Care) Vital Signs: Last Vital Signs Pulse 84 02/17/25 16:50 BP 100/62 02/17/25 16:50 Pulse Ox 96 02/17/25 16:50 Oxygen Delivery Method Room Air 02/17/25 16:50 BMI result Body Mass Index 29.8 Tobacco/Smoking Status: Tobacco use Status Tobacco use date assessed 02/17/25 02/17/25 16:57 Patient Tobacco Use Status Never used Tobacco 02/17/25 16:57 e-Cigarette/Vaping Use Never Used 02/17/25 16:57 PHQ-9: PHQ-9 Score PHQ-9: Total score 0 02/18/25 02:12 Depression Screening Interpretation: Negative Thrive Assessment: Date of Thrive Assessment Date Thrive assessed 02/17/25 02/17/25 16:57 Currently or been in a relationship where the following occur: No concerns reported Const General: no acute distress and alert Limitations: behavioral limitations (is autistic) HENCT Throat: Yes posterior oropharynx normal and Yes tonsils normal (no TP congestion) Neck Neck: Yes no lymphadenopathy and Yes supple Thyroid: Thyroid normal Resp Auscultation: clear to auscultation bilaterally, no rales and no wheezes Cardio Rate: regular rate Rhythm: regular rhythm Heart sounds: no murmurs GI Palpation (GI): Soft to palpation and nontender Auscultation: normal bowel sounds General: Yes no CVA tenderness Back/Spine/Pelvis Back: no CVA tenderness Thoracic/Lumbar Spine: thoracic and lumbar spine normal to inspection Skin Rashes: no rashes Extrem General: Yes no clubbing, cyanosis or edema Coding Level of Care Code Est Pt Level 4 (21903) Diagnoses Nonintractable epilepsy without status epilepticus, unspecified epilepsy type G40.909 Epilepsy type: unspecified Intractability: not intractable Status epilepticus: without status epilepticus Cervical dystonia G24.3 Autism F84.0 Obsessive-compulsive disorder, unspecified type F42.9 Obsessive-compulsive disorder type: unspecified Additional Codes PHQ-9 - 09733 - PHQ-9 Billing: Yes ([id number]) Assessment & Plan Assessment & Plan (1) Epilepsy: Code(s): G40.909 - Epilepsy, unspecified, not intractable, without status epilepticus Category: Medical Qualifiers: Epilepsy type: unspecified Intractability: not intractable Status epilepticus: without status epilepticus Qualified Code(s): G40.909 - Epilepsy, unspecified, not intractable, without status epilepticus Plan: Continue Levetiracetam 1750 mg BID and Carbamazepine ER 500 mg BID (100 mg caps - 5 caps BID) Follow up with neurology (Dr. Hobbs at [facility]) as scheduled Advised patient's mother that we have not yet received a copy of his recent lab results and we will try reaching out to [facility] tomorrow morning to request to have these sent over for review and that we will reach out to her if there are any abnormal or unusual findings on his labs (2) Cervical dystonia: Code(s): G24.3 - Spasmodic torticollis Category: Medical Plan: Patient gets Botox injections into both sides of the neck regularly every 3 months from Neurology He was tried on Nurtec ODT in the past, which patient's mother states did not help much He was also started on Sinemet 25-100 mg previously to take PRN but no more than 2 tablets in 24 hours last year but these have been discontinued since Follow up with neurology as scheduled (3) Autism: Code(s): F84.0 - Autistic disorder Category: Medical Plan: Continue Clonidine 0.1 mg twice a day in AM and at 4 pm and Clonidine 0.2 mg daily at bedtime Follow up with psychiatry as scheduled (4) Obsessive compulsive disorder: Code(s): F42.9 - Obsessive-compulsive disorder, unspecified Category: Medical Qualifiers: Obsessive-compulsive disorder type: unspecified Qualified Code(s): F42.9 - Obsessive-compulsive disorder, unspecified Plan: Continue Benztropine 1 mg BID, Risperdal 3 mg at 8 am and 2 mg at 4 pm (is slowly being weaned down by psychiatry), Gabapentin 600 mg + 400 mg (total of 1000 mg) BID and Trazodone 150 mg + 100 mg (total of 250 mg) Q HS Follow up with psychiatry as scheduled Plan Follow up in 4 months
--- OUTSIDE RECORDS SUMMARY | 2025-02-17 16:54 | XMS_ITS | Clinical Summary ---
Author Organization [facility] Address [address] [place] [address] Care Team Providers Care And Taxi Instructor Bus Trolley Name Role Phone Unavailable Primary Care Provider Unavailabl e Source Comments PLEASE NOTE, if this patient is a minor, it may be UNLAWFUL to discuss sensitive information that is contained in these records (such as FAMILY PLANNING, MENTAL HEALTH or SUBSTANCE ABUSE) with the minor patient's parent or other person without the patient's specific authorization.[facility] Immunizations Immunization Administration Dates Next Due PFIZER COVID VACCINE, [...] Health Maintenance Due Date Last Done Comments Anxiety Screening 1986 Diabetes Screening 1986 Hepatitis C Screening 1986 Tobacco Screening 1986 HIV Screening 2001 Hypertension Screening (#1) 2004 Medicare Annual Wellness Visit 2004 Imm-Hepatitis B (1 of 3 - 19 + 3-dose series) 2005 [id number] ( season) 2024 021, 12/13/2020 Alcohol and Drug Screen 08/06/2024 Depression Annual Screen 08/06/2024 Imm-Influenza (#1) 2025 04/22/2018, 1 , 05/11/2016, Additional history exists Imm-DTaP/Tdap/Td (2 - Td or Tdap) 05/31/2026 016 [place]
== END 2025-02-17 17:21 | disposition home or self-care (01) ==
LOC: HO.HMCH 16:48
PROVIDERS: PCP Internal Medicine; Visit Provider Internal Medicine
DX: G40.909 Epilepsy, unspecified, not intractable, without status epilepticus (principal); G24.3 Spasmodic torticollis; F84.0 Autistic disorder; F42.9 Obsessive-compulsive disorder, unspecified

== ENCOUNTER → 2025-02-17 16:47 | Outpatient (BNVA) | payer MEDICARE, MEDICAID, SELFPAY | PROVIDERS: PCP Internal Medicine; Visit Provider Internal Medicine | DX: F84.0 Autistic disorder (principal); F42.9 Obsessive-compulsive disorder, unspecified; G24.3 Spasmodic torticollis; G40.909 Epilepsy, unspecified, not intractable, without status epilepticus | CPT/HCPCS: 96127; 99212 ==

== ENCOUNTER 2025-07-20 09:37 | Outpatient (AMB) | payer MEDICARE, MEDICAID, SELFPAY ==
--- NOTE | 2025-07-20 09:41 | A.OFFPC_ITS ---
Vital Signs 07/20/25 09:42 Height 6 ft 4 in Weight 246 lb 6 oz BMI 30.0 BP 102/60 Blood Pressure Location Lt brachial Position Sitting Pulse 78 Pulse Source Pulse Oximeter Temp 97.1 F Temp Source Temporal Artery Scan Pulse Oximetry (%) 96 Oxygen Delivery Method Room Air Intake Visit Reasons: follow up Double Surface Operator Required: No Belt Changer: Present Accompanied by: Mother Allergies No Known Allergies (No Known Allergies*) Allergy (Verified 07/20/25 09:41) Medication List - Last Reconciled 07/20/25 by Cary Chew MD acetaminophen 650 mg (2 x 325 mg) PO Q4-6H PRN 30 days [ADULT BRIEFS (2XL) As directed] ammonium lactate 12% 1 appl topical BID PRN 30 days atorvastatin 20 mg PO DAILY benztropine 1 mg PO BID carbamazepine ER 100 mg PO BID carbamazepine ER 400 mg PO BID cholecalciferol (vitamin D3) (Vitamin D3) 50 mcg PO DAILY clonidine HCl 0.2 mg PO BEDTIME 90 days clonidine HCl 0.1 mg PO BID 90 days diazepam mg PO PRN [DISPOSABLE WIPES As directed] fluvoxamine mg PO DAILY gabapentin 600 mg PO BID 30 days gabapentin 400 mg PO TID levetiracetam 750 mg PO BID 30 days levetiracetam 1,000 mg PO BID lorazepam 1 mg PO BID onabotulinumtoxinA units IM [id number] risperidone 3 mg PO QAM risperidone 2 mg PO QPM risperidone mg PO DAILY trazodone 150 mg PO BEDTIME trazodone 100 mg PO BEDTIME Tobacco use date assessed: 07/20/25 Dental Screening Dental Screen Date: 02/17/25 HPI HPI Comments History of Present Illness Details The patient is a 40 year old male presenting for a follow-up visit and medication review. His last primary care visit was in February, and his most recent labs were from last year. There have been no recent changes to his medications from his psychiatrist. The patient follows with neurology specialist Dr. Hobbs at [facility] and receives Botox injections every three months. He also follows with psychiatry. His neurology follow-up appointments are typically every six months. The patient's caregiver reports that he sometimes complains of arm pain, but examination revealed no objective findings. He has a history of dry skin and is running out of his ammonium lactate lotion. His caregiver also notes concerns with his toenails and has difficulty cutting them, requesting a referral to a registered client associate. The caregiver has used [id number] creams for the toenails without significant improvement. The patient has a history of skin tags on his underarms, for which he has seen dermatology. Treatment was considered cosmetic by the dormitory supervisor and was not covered by insurance. [facility] Medical History Cervical dystonia Obesity (BMI 30-39.9) Obsessive compulsive disorder Autism Vitamin D deficiency Pure hypercholesterolemia Epilepsy Surgical History History of elbow surgery History of excision of mass Family History Mother Medical history unknown Social History Housing: Apartment Alcohol intake: never Patient Tobacco Use Status: Never used Tobacco e-Cigarette/Vaping Use: Never Used Second Hand Smoke Exposure: No service: No Current occupational status: disabled Cognitive needs: Yes Hearing needs: No Vision needs: No Questionnaire Thrive Questionnaire Date Thrive assessed: 10/15/24 I am a: Parent/Caregiver What is your living situation today?: I choose not to answer this question Within the past 12 months, did the food you bought not last and you didn't have the money to get more?: I choose not to answer this question Within the past 12 months, did you worry whether your food would run out before you got money to buy more?: I choose not to answer this question Do you have trouble paying for medicines?: I choose not to answer this question Do you have trouble getting transportation to medical appointments?: No Do you have trouble paying your heating and electricity bill?: No Do you have trouble taking care of your child, family member or friend?: No Do you have trouble with day-to-day activities such as bathing, preparing meals, shopping, managing finances, etc.?: No Are you currently unemployed and looking for a job?: No Are you interested in more education?: No Please select the resources that you would like help with: None Currently or been in a relationship where the following occur: I choose not to answer THRIVE Score: 0 DANII-7 AMB Questionnaire DANII-7 Date DANII - 7 assessed: 02/17/25 Source: Developed by Drs. William Romero, Gi Jarrell, Praneeth Baez and colleagues, with an educational donta from [employer]. Review of Systems Const Details: As per HPI. Physical exam (Primary Care) Vital Signs: Last Vital Signs Temp 97.1 F 07/20/25 09:42 Pulse 78 07/20/25 09:42 BP 102/60 07/20/25 09:42 Pulse Ox 96 07/20/25 09:42 Oxygen Delivery Method Room Air 07/20/25 09:42 BMI result Body Mass Index 30.0 Tobacco/Smoking Status: Tobacco use Status Tobacco use date assessed 07/20/25 07/20/25 09:50 Patient Tobacco Use Status Never used Tobacco 07/20/25 09:50 e-Cigarette/Vaping Use Never Used 07/20/25 09:50 Thrive Assessment: Date of Thrive Assessment Date Thrive assessed 10/15/24 07/20/25 09:50 Currently or been in a relationship where the following occur: I choose not to answer Const Other: Pertinent findings are in BOLD GENERAL APPEARANCE Aox1, Behavioral limitaitons 2/2 autism. EYES lids/conjunctiva normal. EARS/NOSE/THROAT Mucous membranes moist, nares normal, lips/teeth normal uvula midline without oral pharyngeal erythema, exudate or swelling TMs normal bilaterally. No lymphangitis/lymphedema. HEAD/NECK normocephalic atraumatic, no facial trauma, neck is supple. RESPIRATORY respiratory effort normal, speaks in full sentences, no tripod position, no accessory muscle use. Lungs clear to auscultation without rhonchi, wheezes, rales CARDIAC Regular rate and rhythm, no edema. ABDOMINAL Soft, ND/NT. No evidence of fluid wave. No pulsatile masses on exam, rebound tenderness, Rene sign or pain over Mcburney's point. MUSCLES/EXTREMITIES No abnormal range of motion, no swelling. SKIN Warm, pink and dry. No rashes, dermatoses, petechiae or lesions. Multiple skin tags and warts on upper arms. NEUROLOGICAL Speech is clear and appropriate. Normal level of consciousness. Gait and coordination are normal. 5/5 strength in all extremities. PSYCH Normal mood and affect. Judgement/competence is appropriate Coding Level of Care Code Est Pt Level 4 (92303) Diagnoses History of onychomycosis Z86.19 Nonintractable epilepsy without status epilepticus, unspecified epilepsy type G40.909 Epilepsy type: unspecified Intractability: not intractable Status epilepticus: without status epilepticus Autism F84.0 Cervical dystonia G24.3 Obsessive-compulsive disorder, unspecified type F42.9 Obsessive-compulsive disorder type: unspecified Time Spent (min) 30 Assessment & Plan Assessment & Plan (1) History of onychomycosis: Code(s): Z86.19 - Personal history of other infectious and parasitic diseases Category: Medical Plan: - Discussed a referral to a registered client associate for management of his toenails. - A prescription cream, potentially clotrimazole, was ordered. - Advised caregiver to check if the medication is covered by insurance and not to fill it if they are already using a similar sobw-erl-abujjjj product. (2) Epilepsy: Code(s): G40.909 - Epilepsy, unspecified, not intractable, without status epilepticus Category: Medical Qualifiers: Epilepsy type: unspecified Intractability: not intractable Status epilepticus: without status epilepticus Qualified Code(s): G40.909 - Epilepsy, unspecified, not intractable, without status epilepticus Plan: Continue Levetiracetam 1750 mg BID and Carbamazepine ER 500 mg BID (100 mg caps - 5 caps BID) Follow up with neurology (Dr. Hobbs at [facility]) as scheduled - No changes indicated from our standpoint. (3) Autism: Code(s): F84.0 - Autistic disorder Category: Medical Plan: Continue Clonidine 0.1 mg twice a day in AM and at 4 pm and Clonidine 0.2 mg daily at bedtime Follow up with psychiatry as scheduled. - No changes were made from primary care standpoint. (4) Cervical dystonia: Code(s): G24.3 - Spasmodic torticollis Category: Medical Plan: Continue Botox injections every 3 months as scheduled. Follow-up with Neurology. - No changes were made from PCP [facility]. (5) Obsessive compulsive disorder: Code(s): F42.9 - Obsessive-compulsive disorder, unspecified Category: Medical Qualifiers: Obsessive-compulsive disorder type: unspecified Qualified Code(s): F42.9 - Obsessive-compulsive disorder, unspecified Plan: Follows with psychiatry. - Continue same Medications. - - No changes indicated from our standpoint. Plan I reviewed the patient's current status and medications, confirming no changes from his specialists. I informed the caregiver that the patient is due for fasting lab work, which has been ordered. Regarding the toenail issue, I prescribed a cream and advised them to check insurance coverage and compare it with their current [id number]-[id number] treatments before filling it. I will also provide a refill for the ammonium lactate lotion for his dry skin. We discussed the jury duty summons, and I will consult with Dr. Isaac to provide the necessary exemption letter. I recommended a follow-up appointment in four months. Orders: Referrals Podiatry Referral Cary Chew MD Z86.19 - Personal history of other infectious and parasitic diseases Medications: New clotrimazole 1% (Antifungal (clotrimazole)) 1 appl topical BID 45 grams 0RF 4 weeks Cary Chew MD Changed From carbamazepine ER 500 mg (5 x 100 mg) PO BID 30 days 300 caps 3RF To carbamazepine ER 100 mg PO BID Low Isaac MD Refilled ammonium lactate 12% 1 appl topical BID PRN 385 grams 12RF dry skin 30 days Cary Chew MD
[2025-07-20 09:42] VITALS: BP 102/60; PULSE 78; TEMP 36.2; O2SAT 96
== END 2025-07-20 10:19 | disposition home or self-care (01) ==
PROVIDERS: PCP Internal Medicine; Visit Provider Internal Medicine
DX: Z86.19 Personal history of other infectious and parasitic diseases (principal); G40.909 Epilepsy, unspecified, not intractable, without status epilepticus; F84.0 Autistic disorder; G24.3 Spasmodic torticollis; F42.9 Obsessive-compulsive disorder, unspecified

== ENCOUNTER → 2025-07-20 09:37 | Outpatient (BNVA) | payer MEDICARE, MEDICAID, SELFPAY | PROVIDERS: PCP Internal Medicine; Visit Provider Internal Medicine | DX: G24.3 Spasmodic torticollis (principal); G40.909 Epilepsy, unspecified, not intractable, without status epilepticus; F84.0 Autistic disorder; F42.9 Obsessive-compulsive disorder, unspecified; Z86.19 Personal history of other infectious and parasitic diseases | CPT/HCPCS: 99212 ==